=== PATIENT | male | born 1940 | race Caucasian/White ===

== ENCOUNTER 2017-05-20 18:26 | Observation (INO) | payer OTHER ==
[~2017-05-20] VITALS: Ht 170.2 cm; Wt 81.1 kg
[~2017-05-20 18:26] MED LIST: AMLODIPINE BESY10 MG PO; AMLODIPINE BESYL5 MG PO; ANCEF,KEFZ2 GM/100 M IV; ASPIR 8181 M1 PO; ASPIR-LOW81 MG PO; ASPIRIN EC325 MG PO; ASPIRIN325 MG PO; ASPIRIN81 M1 PO; BISACODYL SUPP10 MG PR; CALCITRIOL0.25 MCG PO; CALCIUM 500 +1 EACH PO; CALCIUM ACETAT667 MG PO; CENTRUM SILVER1 EAC3 PO; CEPHALEXIN500 MG PO; CITALOPRAM HBR20 MG PO; CLEOCIN300 MG PO; CRESTOR10 MG PO; Chronulac,Cephulac,Enulose 20 gm/30 ml PO; Colace PO; DIABETA5 MG PO; DICYCLOMINE HCL20 MG PO; DUONEB 2.5-0.5 M3 ML AEROSOL; Diabeta,Micronase PO; ECOTRIN325 MG PO; EXTRA STRENGTH500 M1 PO; Ecotrin PO; FLOMAX0.4 M1 PO; FLOMAX0.4 MG PO; FLORINEF ACETA0.1 MG PO; Flomax PO; GABAPENTIN300 MG PO; GLIPIZIDE10 MG PO; GLUCAGEN1 MG IM/SC; GLUCOPHAGE500 MG PO; GLYBURIDE5 MG PO; HYDROCODON-ACE1 EAC7 PO; K-DUR10 MEQ PO; K-DUR20 MEQ PO; KLOR-CON M2020 MEQ PO; LANTUS 3 M100 UNITS/ SC; LANTUS 3 M100 UNITS1 SC; LANTUS100 UNIT/1 SQ; LEVEMIR100 UNIT/2 SC; LEXAPRO10 MG PO; LIDODERM 5% P1 PATCH TD; LITE COAT ASPI325 M1 PO; LORATADINE10 M2 PO; LYRICA150 MG PO; LYRICA75 MG PO; Lexapro PO; METRONIDAZOLE500 MG PO; MILK OF MAGNESI10 ML PO; MULTI-DAY VITA1 EACH PO; MULTIVITAMINS1 EAC2 PO; MYCOSTATIN1 APPLICAT TP; Miralax, Glycolax PO; NABI650T PO; NORVASC2.5 MG PO; NORVASC5 MG PO; NOVOLOG 10100 UNITS/ SC; NOVOLOG PE100 UNITS/; NOVOLOG PE100 UNITS/ SC; Norvasc PO; ONDANSETRON HCL4 MG PO; ONDANSETRON4 MG/2 ML IV; ONDANSETRON4 MG/2 ML PO; ONE DAILY FOR1 EACH PO; ONE-A-DAY ESSE1 EAC1 PO; OS-CAL 500+D T1 EAC1 PO; Oscal 500 w/Vitamin PO; PANTOPRAZOLE SO40 MG PO; PLAVIX75 MG PO; POTASSIUM CHLO20 ME1 PO; PRAVASTATIN SOD40 MG PO; PROMETHAZINE HC25 M1 PO; PROMETHAZINE12.5 M1 PO; PROTONIX40 MG PO; SIMVASTATIN20 MG PO; Senokot S,Pericolace PO; TAMSULOSIN HCL0.4 MG PO; THERAGRAN1 TABLET PO; TOPROL XL100 MG PO; TRAMADOL HCL50 MG PO; TYLENOL EXTRA500 MG PO; TYLENOL REGULA325 MG PO; Theragran PO; Tums,OsCal PO; Tylenol PO; VYTORIN 10-201 EACH PO; ZESTRIL,PRINIV2.5 MG PO; ZESTRIL10 MG PO; ZESTRIL2.5 MG PO
[2017-05-20 19:27] LABS: POINT-OF-CARE METER ID UU13113778
[2017-05-20 20:20] LABS: HEMATOCRIT 31.9 % (38.0-50.0); MCH 28.9 PG (29.0-34.0); MCV 90.4 FL (86-99); PLATELET COUNT 90 K/uL (156-360); RBC DIS.WIDTH-CV 14.3 % (11.8-14.6); RBC DIS.WIDTH-SD 46.7 % (39-53); RED BLOOD COUNT 3.53 M/uL (4.00-5.50); WHITE BLOOD COUNT 7.2 K/uL (4.1-10.2)
[2017-05-20 20:31] LABS: CHLORIDE 108 mEq/L (99-109); POTASSIUM 4.9 mEq/L (3.7-5.4); SODIUM 141 mEq/L (136-147)
[2017-05-20 20:34] LABS: GLUCOSE 206 mg/dL (70-99)
[2017-05-20 20:35] LABS: ANION GAP 14 MEQ/L (2-14); TOTAL BILIRUBIN 0.5 mg/dL (0.0-1.0)
[2017-05-20 20:37] LABS: ALKALINE PHOSPHATASE 95 IU/L (3-129)
[2017-05-20 20:38] LABS: UREA NITROGEN (BUN) 68 mg/dL (9-23)
[2017-05-20 20:42] LABS: TROP-I INTERPRETATION NEGATIVE; TROPONIN-I 0.02 ng/mL (0.0-0.30)
[2017-05-20 20:44] LABS: GFR ESTIMATE (CALCULATED) 8 mL/min/
[2017-05-20] MEDS ORDERED: LANTUS 10100 UNITS/ SC (23:53)
[2017-05-20] MEDS ORDERED: NORVASC5 MG PO (23:53)
[2017-05-20] MEDS ORDERED: NABI650T PO (23:53)
[2017-05-20] MEDS ORDERED: LO-DOSE ASPIRIN81 M2 PO (23:54)
[2017-05-20] MEDS ORDERED: TUMS500 MG PO (23:54)
[2017-05-21 03:10] LABS: ADD MIUA? YES; BILIRUBIN NEGATIVE; BLOOD NEGATIVE; COLOR YELLOW ((YELLOW)); GLUCOSE (STRIP) >=500; KETONES NEGATIVE; LEUKOCYTES NEGATIVE; NITRITE NEGATIVE; PROTEIN (STRIP) 100; SPECIFIC GRAVITY 1.006 (1.000-1.030); UROBILINOGEN 0.2 MG/DL (0.2-1.0)
[2017-05-21 03:16] LABS: BACTERIA RARE /HPF; EPITHELIAL CELLS RARE /HPF; MUCUS TRACE /LPF; RED BLOOD CELLS 0-5 /HPF (0-5); UCUL ADDED? NO; WHITE BLOOD CELLS 0-5 /HPF (0-5)
[2017-05-21 04:10] VITALS: BP 174/81
[2017-05-21 04:29] LABS: POINT-OF-CARE METER ID UU14162513
[2017-05-21 06:39] LABS: HEMATOCRIT 28.7 % (38.0-50.0); MCH 29.6 PG (29.0-34.0); MCHC 32.4 G/DL (30.0-36.0); MCV 91.4 FL (86-99); MEAN PLAT.VOLUME 12.2 uM^3 (9.0-12.4); PLATELET COUNT 71 K/uL (156-360); RBC DIS.WIDTH-CV 14.5 % (11.8-14.6); RBC DIS.WIDTH-SD 47.9 % (39-53); RED BLOOD COUNT 3.14 M/uL (4.00-5.50); WHITE BLOOD COUNT 6.4 K/uL (4.1-10.2)
[2017-05-21 07:16] LABS: ALKALINE PHOSPHATASE 78 IU/L (3-129); ANION GAP 11 MEQ/L (2-14); CHLORIDE 110 MEQ/L (99-109); GFR ESTIMATE (CALCULATED) 9 mL/min/; GLUCOSE 210 mg/dL (70-99); POTASSIUM 4.4 MEQ/L (3.7-5.4); SAMPLE HEMOLYSIS CHECK 0; SAMPLE ICTERIC CHECK 0; SAMPLE LIPEMIA CHECK 0; SODIUM 142 MEQ/L (136-147); TOTAL BILIRUBIN 0.4 MG/DL (0.0-1.0); UREA NITROGEN (BUN) 62 mg/dL (9-23)
[2017-05-21 08:24] LABS: POINT-OF-CARE METER ID UU14162513
[2017-05-21 09:17] VITALS: BP 133/64
[2017-05-21 11:06] VITALS: BP 156/75; BP 184/74
[2017-05-21 12:51] LABS: POINT-OF-CARE METER ID UU14162513
[2017-05-21 17:15] VITALS: BP 127/57
[2017-05-21 17:49] LABS: POINT-OF-CARE METER ID UU14162513
[2017-05-21 18:03] LABS: C DIFF TOXIN POSITIVE (NEGATIVE)
[2017-05-21 18:05] LABS: PROBE CHECK PASS
[2017-05-21 20:15] VITALS: BP 165/81
[2017-05-21 22:48] LABS: POINT-OF-CARE METER ID UU13113831
[2017-05-21 23:46] VITALS: BP 151/69
[2017-05-22 05:28] LABS: EOSINOPHIL (%) 4.8 % (0-5); EOSINOPHIL COUNT 0.2 K/uL (0-0.3); HEMATOCRIT 28.6 % (38.0-50.0); IMMATURE GRANULOCYTE (%) 0.6 % (0.0-0.7); INSTRUMENT ABS NEUTROPHIL CT 3.2 K/uL; LYMPHOCYTE COUNT 0.8 K/uL (1.0-2.8); MCH 29.5 PG (29.0-34.0); MCHC 32.5 G/DL (30.0-36.0); MCV 90.8 FL (86-99); MEAN PLAT.VOLUME 11.9 uM^3 (9.0-12.4); MONOCYTE (%) 10.8 % (3-12); MONOCYTE COUNT 0.5 K/uL (0-0.8); NEUTROPHIL (%) 65.7 % (45-76); NEUTROPHIL COUNT 3.2 K/uL (1.8-6.4); PLATELET COUNT 72 K/uL (156-360); RBC DIS.WIDTH-CV 14.2 % (11.8-14.6); RBC DIS.WIDTH-SD 46.7 % (39-53); RED BLOOD COUNT 3.15 M/uL (4.00-5.50); WHITE BLOOD COUNT 4.8 K/uL (4.1-10.2)
[2017-05-22 05:58] LABS: ALKALINE PHOSPHATASE 66 IU/L (3-129); ANION GAP 12 MEQ/L (2-14); CHLORIDE 113 MEQ/L (99-109); GFR ESTIMATE (CALCULATED) 9 mL/min/; GLUCOSE 84 mg/dL (70-99); POTASSIUM 4.1 MEQ/L (3.7-5.4); SAMPLE HEMOLYSIS CHECK 0; SAMPLE ICTERIC CHECK 0; SAMPLE LIPEMIA CHECK 0; SODIUM 143 MEQ/L (136-147); TOTAL BILIRUBIN 0.4 MG/DL (0.0-1.0); UREA NITROGEN (BUN) 59 mg/dL (9-23)
[2017-05-22 07:51] VITALS: BP 146/76
[2017-05-22 08:10] LABS: POINT-OF-CARE METER ID UU13113831
[2017-05-22] MEDS ORDERED: VANCOMYCIN HCL125 MG PO (09:57)
== END 2017-05-22 11:43 | disposition home health service (06) ==
LOC: EME 18:26 → 5WEST 05-21 01:35 → EDOF 05-21 01:35 → 5WEST 05-21 04:03
PROVIDERS: Emergency Medicine; Hospitalist; Internal Medicine; Nurse Practitioner Family
DX: K57.32 Diverticulitis of large intestine without perforation or abscess without bleeding (principal); A04.7 Enterocolitis due to Clostridium difficile; N17.9 Acute kidney failure, unspecified; E11.22 Type 2 diabetes mellitus with diabetic chronic kidney disease; E11.21 Type 2 diabetes mellitus with diabetic nephropathy; I12.9 Hypertensive chronic kidney disease with stage 1 through stage 4 chronic kidney disease, or unspecified chronic kidney disease; N18.4 Chronic kidney disease, stage 4 (severe); K74.60 Unspecified cirrhosis of liver; D63.1 Anemia in chronic kidney disease; E87.2 Acidosis; E55.9 Vitamin D deficiency, unspecified; N25.81 Secondary hyperparathyroidism of renal origin; D69.6 Thrombocytopenia, unspecified; E11.42 Type 2 diabetes mellitus with diabetic polyneuropathy; E11.51 Type 2 diabetes mellitus with diabetic peripheral angiopathy without gangrene; F32.9 Major depressive disorder, single episode, unspecified; J45.909 Unspecified asthma, uncomplicated; I25.2 Old myocardial infarction; N40.0 Benign prostatic hyperplasia without lower urinary tract symptoms; I25.10 Atherosclerotic heart disease of native coronary artery without angina pectoris; F03.90 Unspecified dementia, unspecified severity, without behavioral disturbance, psychotic disturbance, mood disturbance, and anxiety; Z79.4 Long term (current) use of insulin; Z95.1 Presence of aortocoronary bypass graft; Z86.73 Personal history of transient ischemic attack (TIA), and cerebral infarction without residual deficits
CPT/HCPCS: 70450; 71020; 74176; 80053; 81003; 82607; 82746; 82948; 84100; 84484; 85025; 85027; 87086; 87493; 93005; G0378; J0696; J0881; J1644; J1815; J7030; J7050; S0030

== ENCOUNTER 2017-08-13 12:29 | Emergency (ER) | payer OTHER ==
[~2017-08-13] VITALS: Ht 154.9 cm; Wt 78.7 kg
[~2017-08-13 12:29] MED LIST changes: +LANTUS 10100 UNITS/ SC; +LO-DOSE ASPIRIN81 M2 PO; +TUMS500 MG PO; +VANCOMYCIN HCL125 MG PO
[2017-08-13 14:52] LABS: EOSINOPHIL (%) 2.7 % (0-5); EOSINOPHIL COUNT 0.2 K/uL (0-0.3); HEMATOCRIT 28.5 % (38.0-50.0); IMMATURE GRANULOCYTE (%) 1.7 % (0.0-0.7); IMMATURE GRANULOCYTE COUNT 0.1 K/uL; INSTRUMENT ABS NEUTROPHIL CT 5.8 K/uL; MCHC 32.3 G/DL (30.0-36.0); MCV 89.9 FL (86-99); MEAN PLAT.VOLUME 11.2 uM^3 (9.0-12.4); MONOCYTE (%) 11.6 % (3-12); MONOCYTE COUNT 0.9 K/uL (0-0.8); NEUTROPHIL (%) 71.7 % (45-76); NEUTROPHIL COUNT 5.8 K/uL (1.8-6.4); NRBC (%) 0.2 /100 WBC (0-0); PLATELET COUNT 94 K/uL (156-360); RBC DIS.WIDTH-CV 14.2 % (11.8-14.6); RBC DIS.WIDTH-SD 46.4 % (39-53); RED BLOOD COUNT 3.17 M/uL (4.00-5.50); WHITE BLOOD COUNT 8.1 K/uL (4.1-10.2)
[2017-08-13 15:00] LABS: CHLORIDE 110 mEq/L (99-109); POTASSIUM 5.2 mEq/L (3.7-5.4); SODIUM 143 mEq/L (136-147)
[2017-08-13 15:02] LABS: GLUCOSE 143 mg/dL (70-99)
[2017-08-13 15:03] LABS: ANION GAP 17 MEQ/L (2-14)
[2017-08-13 15:06] LABS: GFR ESTIMATE (CALCULATED) 8 mL/min/
[2017-08-13 15:07] LABS: UREA NITROGEN (BUN) 79 mg/dL (9-23)
[2017-08-13 16:30] VITALS: BP 154/87
== END 2017-08-13 16:31 | disposition home or self-care (01) ==
LOC: EME 12:29
PROVIDERS: Emergency Medicine
PROC: 3E0234Z Introduction of Serum, Toxoid and Vaccine into Muscle, Percutaneous Approach (ICD-10-PCS; principal; 2017-08-13)
DX: S51.812A Laceration without foreign body of left forearm, initial encounter (principal); I12.9 Hypertensive chronic kidney disease with stage 1 through stage 4 chronic kidney disease, or unspecified chronic kidney disease; E11.22 Type 2 diabetes mellitus with diabetic chronic kidney disease; N18.9 Chronic kidney disease, unspecified; S50.12XA Contusion of left forearm, initial encounter; Z23 Encounter for immunization; W18.09XA Striking against other object with subsequent fall, initial encounter; Y92.39 Other specified sports and athletic area as the place of occurrence of the external cause; Z79.4 Long term (current) use of insulin; I25.2 Old myocardial infarction; E78.5 Hyperlipidemia, unspecified; F03.90 Unspecified dementia, unspecified severity, without behavioral disturbance, psychotic disturbance, mood disturbance, and anxiety; Z86.73 Personal history of transient ischemic attack (TIA), and cerebral infarction without residual deficits; Z95.1 Presence of aortocoronary bypass graft
CPT/HCPCS: 70450; 73090; 80048; 85025; 93005; 99281; 99285

== ENCOUNTER 2017-10-14 14:02 | Day surgery (SDC) | payer OTHER ==
[~2017-10-14] VITALS: Ht 170.2 cm; Wt 80.7 kg
[~2017-10-14 14:02] MED LIST changes: +TURMERIC500 M2 PO; +VITAMIN D-32000 UNI2 PO
[2017-10-14 14:41] LABS: HEMATOCRIT 28.7 % (38.0-50.0); MCH 29.4 PG (29.0-34.0); MCHC 32.1 G/DL (30.0-36.0); MCV 91.7 FL (86-99); PLATELET COUNT 102 K/uL (156-360); RBC DIS.WIDTH-SD 47.4 % (39-53); RED BLOOD COUNT 3.13 M/uL (4.00-5.50); WHITE BLOOD COUNT 8.5 K/uL (4.1-10.2)
[2017-10-14 14:55] LABS: ANION GAP 14 MEQ/L (2-14); CHLORIDE 106 MEQ/L (99-109); POTASSIUM 4.5 MEQ/L (3.7-5.4); SAMPLE HEMOLYSIS CHECK 0; SAMPLE ICTERIC CHECK 0; SAMPLE LIPEMIA CHECK 0; SODIUM 140 MEQ/L (136-147)
[2017-10-14 14:59] VITALS: BP 149/79
[2017-10-14 15:00] LABS: GFR ESTIMATE (CALCULATED) 7 mL/min/; GLUCOSE 160 mg/dL (70-99); UREA NITROGEN (BUN) 70 mg/dL (9-23)
[2017-10-14 16:30] LABS: POINT-OF-CARE METER ID UU13113675
[2017-10-14 17:30] VITALS: BP 161/84
[2017-10-14 18:45] VITALS: BP 165/90
== END 2017-10-14 19:09 | disposition home or self-care (01) ==
LOC: SDC 14:02
PROVIDERS: Surgery
DX: I12.0 Hypertensive chronic kidney disease with stage 5 chronic kidney disease or end stage renal disease (principal); E11.22 Type 2 diabetes mellitus with diabetic chronic kidney disease; N18.6 End stage renal disease; Z99.2 Dependence on renal dialysis; D63.1 Anemia in chronic kidney disease; E78.5 Hyperlipidemia, unspecified; N40.0 Benign prostatic hyperplasia without lower urinary tract symptoms; I25.10 Atherosclerotic heart disease of native coronary artery without angina pectoris; I25.2 Old myocardial infarction; K74.60 Unspecified cirrhosis of liver; I70.209 Unspecified atherosclerosis of native arteries of extremities, unspecified extremity; E21.3 Hyperparathyroidism, unspecified; Z79.82 Long term (current) use of aspirin; Z79.4 Long term (current) use of insulin; Z79.02 Long term (current) use of antithrombotics/antiplatelets
CPT/HCPCS: 71010; 80048; 82948; 85027; C1788; J0690; J1644

== ENCOUNTER 2017-12-09 09:33 | Day surgery (SDC) | payer OTHER ==
[~2017-12-09] VITALS: Ht 170.2 cm; Wt 72.6 kg
[2017-12-09 10:30] LABS: HEMATOCRIT 33.4 % (38.0-50.0); HEMOGLOBIN 10.3 G/DL (12.5-16.6); MCH 28.6 PG (29.0-34.0); MCHC 30.8 G/DL (30.0-36.0); MCV 92.8 FL (86-99); PLATELET COUNT 98 K/uL (156-360); RBC DIS.WIDTH-CV 16.1 % (11.8-14.6); RBC DIS.WIDTH-SD 54.7 % (39-53); WHITE BLOOD COUNT 6.1 K/uL (4.1-10.2)
[2017-12-09 10:34] VITALS: BP 153/87
[2017-12-09 10:56] LABS: CHLORIDE 106 MEQ/L (99-109); POTASSIUM 5.2 MEQ/L (3.7-5.4); SODIUM 141 MEQ/L (136-147)
[2017-12-09 11:01] LABS: CREATININE 5.2 MG/DL (0.6-1.3); GFR ESTIMATE (CALCULATED) 11 mL/min/ (58.99-99999); GLUCOSE 187 mg/dL (70-99); UREA NITROGEN (BUN) 37 mg/dL (9-23)
[2017-12-09] MEDS ORDERED: NORCO 5/3251 TABLET PO (14:22)
[2017-12-09 14:48] VITALS: BP 111/69
[2017-12-09 15:48] VITALS: BP 111/69
[2017-12-09 16:45] VITALS: BP 110/68
[2017-12-09 17:36] VITALS: BP 114/67
== END 2017-12-09 17:35 | disposition home or self-care (01) ==
LOC: SDC 09:33
PROVIDERS: Surgery
DX: I12.0 Hypertensive chronic kidney disease with stage 5 chronic kidney disease or end stage renal disease (principal); E11.22 Type 2 diabetes mellitus with diabetic chronic kidney disease; N18.6 End stage renal disease; E11.51 Type 2 diabetes mellitus with diabetic peripheral angiopathy without gangrene; Z99.2 Dependence on renal dialysis; F41.8 Other specified anxiety disorders; D63.8 Anemia in other chronic diseases classified elsewhere; N40.0 Benign prostatic hyperplasia without lower urinary tract symptoms; K76.9 Liver disease, unspecified; I25.10 Atherosclerotic heart disease of native coronary artery without angina pectoris; E78.5 Hyperlipidemia, unspecified; E21.3 Hyperparathyroidism, unspecified; E55.9 Vitamin D deficiency, unspecified; Z95.1 Presence of aortocoronary bypass graft; Z79.82 Long term (current) use of aspirin; Z79.4 Long term (current) use of insulin; Z79.02 Long term (current) use of antithrombotics/antiplatelets
CPT/HCPCS: 80048; 82948; 85027; 87641; J0690; J1644

== ENCOUNTER 2018-02-05 13:47 | Day surgery (SDC) | payer OTHER ==
[~2018-02-05] VITALS: Ht 167.6 cm; Wt 79.8 kg
[~2018-02-05 13:47] MED LIST changes: +NEPHRO-VITE,1 TABLET PO; +NORCO 5/3251 TABLET PO
[2018-02-05 14:49] LABS: HEMATOCRIT 35.8 % (38.0-50.0); MCH 28.1 PG (29.0-34.0); MCHC 30.7 G/DL (30.0-36.0); MCV 91.6 FL (86-99); PLATELET COUNT 101 K/uL (156-360); RBC DIS.WIDTH-SD 57.2 % (39-53); RED BLOOD COUNT 3.91 M/uL (4.00-5.50); WHITE BLOOD COUNT 6.5 K/uL (4.1-10.2)
[2018-02-05 14:52] VITALS: BP 142/69
[2018-02-05 15:02] LABS: CHLORIDE 102 MEQ/L (99-109); POTASSIUM 3.9 MEQ/L (3.7-5.4); SODIUM 141 MEQ/L (136-147)
[2018-02-05 15:08] LABS: GFR ESTIMATE (CALCULATED) 16 mL/min/ (58.99-99999); GLUCOSE 171 mg/dL (70-99); UREA NITROGEN (BUN) 31 mg/dL (9-23)
[2018-02-05 17:35] VITALS: BP 112/57
[2018-02-05 18:09] VITALS: BP 112/58
== END 2018-02-05 18:17 | disposition home or self-care (01) ==
LOC: SDC 13:47
PROVIDERS: Surgery
DX: T82.858A Stenosis of other vascular prosthetic devices, implants and grafts, initial encounter (principal); I12.0 Hypertensive chronic kidney disease with stage 5 chronic kidney disease or end stage renal disease; N18.5 Chronic kidney disease, stage 5; Z99.2 Dependence on renal dialysis; D63.1 Anemia in chronic kidney disease; E11.22 Type 2 diabetes mellitus with diabetic chronic kidney disease; E11.51 Type 2 diabetes mellitus with diabetic peripheral angiopathy without gangrene; I70.209 Unspecified atherosclerosis of native arteries of extremities, unspecified extremity; I25.10 Atherosclerotic heart disease of native coronary artery without angina pectoris; Z95.1 Presence of aortocoronary bypass graft; Z86.73 Personal history of transient ischemic attack (TIA), and cerebral infarction without residual deficits; E21.3 Hyperparathyroidism, unspecified; E55.9 Vitamin D deficiency, unspecified; E11.40 Type 2 diabetes mellitus with diabetic neuropathy, unspecified; N40.0 Benign prostatic hyperplasia without lower urinary tract symptoms; K76.9 Liver disease, unspecified; I25.2 Old myocardial infarction; M19.90 Unspecified osteoarthritis, unspecified site; F41.1 Generalized anxiety disorder; Z90.49 Acquired absence of other specified parts of digestive tract; Z79.82 Long term (current) use of aspirin; Z79.4 Long term (current) use of insulin; Z83.3 Family history of diabetes mellitus; Z82.49 Family history of ischemic heart disease and other diseases of the circulatory system; Z80.9 Family history of malignant neoplasm, unspecified
CPT/HCPCS: 80048; 82948; 85027; 87641; 93005; C1725; C1769; C1894; J0690; J1644; J3010

== ENCOUNTER 2018-03-13 23:49 | Emergency (ER) | payer OTHER ==
[~2018-03-13] VITALS: Ht 167.6 cm; Wt 84.2 kg
[2018-03-14 00:58] LABS: BASOPHIL (%) 0.1 % (0-1); EOSINOPHIL (%) 0 % (0-5); HEMATOCRIT 34.3 % (38.0-50.0); HEMOGLOBIN 10.8 G/DL (12.5-16.6); IMMATURE GRANULOCYTE (%) 0.8 % (0.0-0.7); LYMPHOCYTE (%) 6.8 % (15-42); LYMPHOCYTE COUNT 0.6 K/uL (1.0-2.8); MCH 28.5 PG (29.0-34.0); MCHC 31.5 G/DL (30.0-36.0); MCV 90.5 FL (86-99); MONOCYTE (%) 8.4 % (3-12); MONOCYTE COUNT 0.7 K/uL (0-0.8); NEUTROPHIL (%) 83.9 % (45-76); NEUTROPHIL COUNT 7.2 K/uL (1.8-6.4); NRBC (%) 0.5 /100 WBC (0-0); PLATELET COUNT 97 K/uL (156-360); RBC DIS.WIDTH-CV 18.2 % (11.8-14.6); RBC DIS.WIDTH-SD 58.3 % (39-53); RED BLOOD COUNT 3.79 M/uL (4.00-5.50); WHITE BLOOD COUNT 8.6 K/uL (4.1-10.2)
[2018-03-14 01:09] LABS: ALBUMIN 3.8 g/dL (3.2-4.8); CHLORIDE 96 mEq/L (99-109); POTASSIUM 3.9 mEq/L (3.7-5.4); SODIUM 136 mEq/L (136-147)
[2018-03-14 01:10] LABS: MAGNESIUM 2.2 mg/dL (1.3-2.7)
[2018-03-14 01:12] LABS: TOTAL PROTEIN 6.6 g/dL (6.4-8.3)
[2018-03-14 01:14] LABS: TOTAL BILIRUBIN 0.6 mg/dL (0.0-1.0)
[2018-03-14 01:15] LABS: ALKALINE PHOSPHATASE 113 IU/L (3-129); PHOSPHORUS 3.1 mg/dL (2.5-4.9)
[2018-03-14 01:16] LABS: CREATININE 3.7 mg/dL (0.6-1.3); GFR ESTIMATE (CALCULATED) 17 mL/min/ (58.99-99999)
[2018-03-14 01:17] LABS: AST (GOT) 18 IU/L (2-34); UREA NITROGEN (BUN) 49 mg/dL (9-23)
[2018-03-14 01:19] LABS: ALT (GPT) 22 IU/L (3-49)
[2018-03-14 01:28] LABS: GLUCOSE 512 mg/dL (70-99)
[2018-03-14] MEDS ORDERED: ULTRAM50 MG PO (05:53)
[2018-03-14 06:30] VITALS: BP 124/68
== END 2018-03-14 06:54 | disposition home or self-care (01) ==
LOC: EME → EDBD 23:49 → EME 03-14 06:54
PROVIDERS: Emergency Medicine
DX: E11.40 Type 2 diabetes mellitus with diabetic neuropathy, unspecified (principal); E11.65 Type 2 diabetes mellitus with hyperglycemia; B02.9 Zoster without complications; E11.22 Type 2 diabetes mellitus with diabetic chronic kidney disease; I12.9 Hypertensive chronic kidney disease with stage 1 through stage 4 chronic kidney disease, or unspecified chronic kidney disease; N18.9 Chronic kidney disease, unspecified; Z99.2 Dependence on renal dialysis; K74.60 Unspecified cirrhosis of liver; F03.90 Unspecified dementia, unspecified severity, without behavioral disturbance, psychotic disturbance, mood disturbance, and anxiety; E78.5 Hyperlipidemia, unspecified; I25.2 Old myocardial infarction; Z95.1 Presence of aortocoronary bypass graft; F32.9 Major depressive disorder, single episode, unspecified; F41.9 Anxiety disorder, unspecified; Z86.73 Personal history of transient ischemic attack (TIA), and cerebral infarction without residual deficits; Z90.49 Acquired absence of other specified parts of digestive tract; Z79.4 Long term (current) use of insulin; Z79.82 Long term (current) use of aspirin
CPT/HCPCS: 80053; 82948; 83735; 84100; 85025; 99281; 99285

== ENCOUNTER 2018-03-15 22:45 | Observation (INO) | payer OTHER ==
[~2018-03-15] VITALS: Ht 170.2 cm; Wt 84.2 kg
[~2018-03-15 22:45] MED LIST changes: +ULTRAM50 MG PO
[2018-03-15 23:52] LABS: HEMATOCRIT 35.3 % (38.0-50.0); MCH 28.8 PG (29.0-34.0); MCHC 31.2 G/DL (30.0-36.0); MCV 92.4 FL (86-99); PLATELET COUNT 105 K/uL (156-360); RBC DIS.WIDTH-CV 19.4 % (11.8-14.6); RBC DIS.WIDTH-SD 60.1 % (39-53); RED BLOOD COUNT 3.82 M/uL (4.00-5.50); WHITE BLOOD COUNT 8.1 K/uL (4.1-10.2)
[2018-03-16 00:05] LABS: ALBUMIN 3.6 g/dL (3.2-4.8)
[2018-03-16 00:06] LABS: CHLORIDE 101 mEq/L (99-109); POTASSIUM 3.6 mEq/L (3.7-5.4); SODIUM 142 mEq/L (136-147)
[2018-03-16 00:08] LABS: GLUCOSE 302 mg/dL (70-99); TOTAL PROTEIN 6.4 g/dL (6.4-8.3)
[2018-03-16 00:10] LABS: TOTAL BILIRUBIN 0.7 mg/dL (0.0-1.0)
[2018-03-16 00:11] LABS: ALKALINE PHOSPHATASE 100 IU/L (3-129)
[2018-03-16 00:14] LABS: ALT (GPT) 30 IU/L (3-49); AST (GOT) 27 IU/L (2-34); CREATININE 5.6 mg/dL (0.6-1.3); GFR ESTIMATE (CALCULATED) 11 mL/min/ (58.99-99999); UREA NITROGEN (BUN) 81 mg/dL (9-23)
[2018-03-16 00:15] LABS: URIC ACID 8.7 mg/dL (3.1-9.2)
[2018-03-16 02:10] LABS: C-REACTIVE PROTEIN 5.5 MG/L (0-10)
[2018-03-16] MEDS ORDERED: ACYCLOVIR800 MG PO (02:42)
[2018-03-16 03:21] VITALS: BP 145/70
[2018-03-16 03:31] LABS: ERTH.SED.RATE 13 MM/HR (0-20)
[2018-03-16 07:10] VITALS: BP 133/76
[2018-03-16 09:13] LABS: BASOPHIL (%) 0.2 % (0-1); EOSINOPHIL (%) 2.1 % (0-5); EOSINOPHIL COUNT 0.1 K/uL (0-0.3); HEMATOCRIT 33.5 % (38.0-50.0); HEMOGLOBIN 10.5 G/DL (12.5-16.6); IMMATURE GRANULOCYTE (%) 1.1 % (0.0-0.7); LYMPHOCYTE (%) 13.8 % (15-42); LYMPHOCYTE COUNT 0.9 K/uL (1.0-2.8); MCHC 31.3 G/DL (30.0-36.0); MCV 92.5 FL (86-99); MONOCYTE (%) 9.5 % (3-12); MONOCYTE COUNT 0.6 K/uL (0-0.8); NEUTROPHIL (%) 73.3 % (45-76); NEUTROPHIL COUNT 4.9 K/uL (1.8-6.4); NRBC (%) 0.3 /100 WBC (0-0); PLATELET COUNT 97 K/uL (156-360); RBC DIS.WIDTH-CV 19.6 % (11.8-14.6); RBC DIS.WIDTH-SD 59.9 % (39-53); RED BLOOD COUNT 3.62 M/uL (4.00-5.50); WHITE BLOOD COUNT 6.6 K/uL (4.1-10.2)
[2018-03-16 09:22] LABS: ALBUMIN 3.3 G/DL (3.2-4.8); CHLORIDE 101 MEQ/L (99-109); POTASSIUM 3.6 MEQ/L (3.7-5.4); SODIUM 139 MEQ/L (136-147)
[2018-03-16 09:28] LABS: CREATININE 5.5 MG/DL (0.6-1.3); GFR ESTIMATE (CALCULATED) 11 mL/min/ (58.99-99999); GLUCOSE 313 mg/dL (70-99); PHOSPHORUS 6.1 mg/dL (2.5-4.9); UREA NITROGEN (BUN) 78 mg/dL (9-23)
[2018-03-16 11:22] LABS: HEPATITIS B SURFACE ANTIGEN Nonreactive
[2018-03-16 11:23] LABS: HEPATITIS B SURFACE ANTIBODY Nonreactive
[2018-03-16 16:11] VITALS: BP 130/66
[2018-03-16] MEDS ORDERED: GABAPENTIN300 MG PO (17:18)
[2018-03-16] MEDS ORDERED: AMITRIPTYLINE H10 MG PO (17:18)
[2018-03-16] MEDS ORDERED: CAPSAICIN57 GM TP (17:19)
== END 2018-03-16 18:47 | disposition home or self-care (01) ==
LOC: EME → EDBD 22:45 → EDOF 03-16 01:44 → 5WEST 03-16 01:44 → EDOF 03-16 01:44 → ENRESERV 03-16 01:49 → 5WEST 03-16 03:09
PROVIDERS: Emergency Medicine; Hospitalist; Internal Medicine Nephrology
DX: E11.40 Type 2 diabetes mellitus with diabetic neuropathy, unspecified (principal); M79.672 Pain in left foot; M79.671 Pain in right foot; R26.89 Other abnormalities of gait and mobility; Z91.81 History of falling; F03.90 Unspecified dementia, unspecified severity, without behavioral disturbance, psychotic disturbance, mood disturbance, and anxiety; I12.0 Hypertensive chronic kidney disease with stage 5 chronic kidney disease or end stage renal disease; E11.22 Type 2 diabetes mellitus with diabetic chronic kidney disease; N18.6 End stage renal disease; Z99.2 Dependence on renal dialysis; E11.21 Type 2 diabetes mellitus with diabetic nephropathy; E11.51 Type 2 diabetes mellitus with diabetic peripheral angiopathy without gangrene; E03.9 Hypothyroidism, unspecified; E55.9 Vitamin D deficiency, unspecified; N40.0 Benign prostatic hyperplasia without lower urinary tract symptoms; K74.60 Unspecified cirrhosis of liver; K21.9 Gastro-esophageal reflux disease without esophagitis; I25.10 Atherosclerotic heart disease of native coronary artery without angina pectoris; I25.2 Old myocardial infarction; I48.0 Paroxysmal atrial fibrillation; I69.354 Hemiplegia and hemiparesis following cerebral infarction affecting left non-dominant side; E21.3 Hyperparathyroidism, unspecified; M50.30 Other cervical disc degeneration, unspecified cervical region; M19.90 Unspecified osteoarthritis, unspecified site; K86.1 Other chronic pancreatitis; D63.1 Anemia in chronic kidney disease; F32.9 Major depressive disorder, single episode, unspecified; F41.9 Anxiety disorder, unspecified; K27.9 Peptic ulcer, site unspecified, unspecified as acute or chronic, without hemorrhage or perforation; Z86.19 Personal history of other infectious and parasitic diseases; Z90.49 Acquired absence of other specified parts of digestive tract; Z95.1 Presence of aortocoronary bypass graft; Z87.891 Personal history of nicotine dependence; Z82.49 Family history of ischemic heart disease and other diseases of the circulatory system; Z83.3 Family history of diabetes mellitus; B02.9 Zoster without complications; Z79.82 Long term (current) use of aspirin; Z79.02 Long term (current) use of antithrombotics/antiplatelets; Z79.4 Long term (current) use of insulin
CPT/HCPCS: 73630; 80053; 80069; 82948; 84550; 85025; 85027; 85651; 86140; 86706; 87340; 99281; 99285; G0257; G0378; G8978 GP CK; G8979 CJ; J1644; J1815

== ENCOUNTER 2018-03-29 15:08 | Emergency (ER) | payer OTHER ==
[~2018-03-29] VITALS: Ht 170.2 cm; Wt 83.2 kg
[~2018-03-29 15:08] MED LIST changes: +ACYCLOVIR800 MG PO; +AMITRIPTYLINE H10 MG PO; +CAPSAICIN57 GM TP
[2018-03-29 17:50] VITALS: BP 132/78
[2018-03-31] MEDS ORDERED: FLOMAX0.4 MG PO (09:47)
== END 2018-03-29 17:53 | disposition home or self-care (01) ==
LOC: EME 15:08
DX: S00.03XA Contusion of scalp, initial encounter (principal); W01.0XXA Fall on same level from slipping, tripping and stumbling without subsequent striking against object, initial encounter; E11.9 Type 2 diabetes mellitus without complications; E78.5 Hyperlipidemia, unspecified; F03.90 Unspecified dementia, unspecified severity, without behavioral disturbance, psychotic disturbance, mood disturbance, and anxiety; K74.60 Unspecified cirrhosis of liver; F41.9 Anxiety disorder, unspecified; F32.9 Major depressive disorder, single episode, unspecified; I25.2 Old myocardial infarction; Z95.1 Presence of aortocoronary bypass graft; Z86.73 Personal history of transient ischemic attack (TIA), and cerebral infarction without residual deficits; Z90.49 Acquired absence of other specified parts of digestive tract; Z79.4 Long term (current) use of insulin; Z79.82 Long term (current) use of aspirin
CPT/HCPCS: 70450; 99281; 99284

== ENCOUNTER 2018-03-31 20:42 | Inpatient (IN) | payer OTHER ==
[~2018-03-31] VITALS: Ht 170.2 cm; Wt 81.4 kg
[~2018-03-31 20:42] MED LIST changes: -LEVAQUIN500 MG PO; -LYRICA50 MG PO
[2018-03-31 22:42] LABS: BASOPHIL (%) 0.4 % (0-1); EOSINOPHIL (%) 1.2 % (0-5); EOSINOPHIL COUNT 0.1 K/uL (0-0.3); HEMATOCRIT 34.8 % (38.0-50.0); HEMOGLOBIN 10.7 G/DL (12.5-16.6); IMMATURE GRANULOCYTE (%) 0.5 % (0.0-0.7); LYMPHOCYTE (%) 10.3 % (15-42); LYMPHOCYTE COUNT 0.8 K/uL (1.0-2.8); MCH 28.8 PG (29.0-34.0); MCHC 30.7 G/DL (30.0-36.0); MCV 93.5 FL (86-99); MONOCYTE (%) 12.5 % (3-12); MONOCYTE COUNT 0.9 K/uL (0-0.8); NEUTROPHIL (%) 75.1 % (45-76); NEUTROPHIL COUNT 5.6 K/uL (1.8-6.4); PLATELET COUNT 88 K/uL (156-360); RBC DIS.WIDTH-CV 19.6 % (11.8-14.6); RBC DIS.WIDTH-SD 67.1 % (39-53); RED BLOOD COUNT 3.72 M/uL (4.00-5.50); WHITE BLOOD COUNT 7.5 K/uL (4.1-10.2)
[2018-03-31 22:54] LABS: CHLORIDE 100 mEq/L (99-109); MAGNESIUM 1.9 mg/dL (1.3-2.7); SODIUM 140 mEq/L (136-147)
[2018-03-31 22:56] LABS: GLUCOSE 151 mg/dL (70-99)
[2018-03-31 22:59] LABS: GFR ESTIMATE (CALCULATED) 12 mL/min/ (58.99-99999)
[2018-03-31 23:00] LABS: UREA NITROGEN (BUN) 29 mg/dL (9-23)
[2018-03-31 23:03] LABS: TROP-I INTERPRETATION NEGATIVE; TROPONIN-I 0.07 ng/mL (0.0-0.30)
[2018-04-01 00:10] LABS: APPEARANCE CLEAR ((CLEAR)); BILIRUBIN NEGATIVE; BLOOD NEGATIVE; COLOR YELLOW ((YELLOW)); GLUCOSE (STRIP) 150; KETONES NEGATIVE; LEUKOCYTES NEGATIVE; NITRITE NEGATIVE; PROTEIN (STRIP) >=500; SPECIFIC GRAVITY 1.013 (1.000-1.030); UROBILINOGEN 0.2 MG/DL (0.2-1.0)
[2018-04-01 00:19] LABS: BACTERIA NONE SEEN /HPF; EPITHELIAL CELLS NONE SEEN /HPF; HYALINE CASTS 0-5 /LPF; MUCUS NONE SEEN /LPF; RED BLOOD CELLS 0-5 /HPF (0-5); WHITE BLOOD CELLS 0-5 /HPF (0-5)
[2018-04-01 04:26] VITALS: BP 131/73
[2018-04-01 08:15] VITALS: BP 149/75
[2018-04-01 11:18] LABS: BASOPHIL (%) 0.4 % (0-1); EOSINOPHIL (%) 0.7 % (0-5); EOSINOPHIL COUNT 0.1 K/uL (0-0.3); HEMATOCRIT 34.7 % (38.0-50.0); HEMOGLOBIN 10.5 G/DL (12.5-16.6); IMMATURE GRANULOCYTE (%) 0.3 % (0.0-0.7); LYMPHOCYTE (%) 5.5 % (15-42); LYMPHOCYTE COUNT 0.4 K/uL (1.0-2.8); MCH 28.8 PG (29.0-34.0); MCHC 30.3 G/DL (30.0-36.0); MCV 95.1 FL (86-99); MONOCYTE (%) 11.2 % (3-12); MONOCYTE COUNT 0.8 K/uL (0-0.8); NEUTROPHIL (%) 81.9 % (45-76); NEUTROPHIL COUNT 5.6 K/uL (1.8-6.4); PLATELET COUNT 87 K/uL (156-360); RBC DIS.WIDTH-CV 19.2 % (11.8-14.6); RBC DIS.WIDTH-SD 67.7 % (39-53); RED BLOOD COUNT 3.65 M/uL (4.00-5.50); WHITE BLOOD COUNT 6.9 K/uL (4.1-10.2)
[2018-04-01 11:53] LABS: ALBUMIN 3.2 G/DL (3.2-4.8); CHLORIDE 103 MEQ/L (99-109); CREATININE 5.1 MG/DL (0.6-1.3); GFR ESTIMATE (CALCULATED) 12 mL/min/ (58.99-99999); GLUCOSE 190 mg/dL (70-99); POTASSIUM 4.3 MEQ/L (3.7-5.4); SODIUM 141 MEQ/L (136-147); UREA NITROGEN (BUN) 33 mg/dL (9-23)
[2018-04-01 12:08] LABS: HEPATITIS B SURFACE ANTIGEN Nonreactive
[2018-04-01 16:44] VITALS: BP 141/69
[2018-04-01 19:40] VITALS: BP 135/62
[2018-04-02 00:04] VITALS: BP 119/61
[2018-04-02 04:01] VITALS: BP 111/58
[2018-04-02 06:05] LABS: INTER. NORMALIZED RATIO 1.6
[2018-04-02 06:07] LABS: BASOPHIL (%) 0.6 % (0-1); EOSINOPHIL COUNT 0.2 K/uL (0-0.3); HEMATOCRIT 31.8 % (38.0-50.0); HEMOGLOBIN 9.5 G/DL (12.5-16.6); IMMATURE GRANULOCYTE (%) 0.6 % (0.0-0.7); LYMPHOCYTE (%) 16.7 % (15-42); LYMPHOCYTE COUNT 0.8 K/uL (1.0-2.8); MCH 27.8 PG (29.0-34.0); MCHC 29.9 G/DL (30.0-36.0); MONOCYTE (%) 14.1 % (3-12); MONOCYTE COUNT 0.7 K/uL (0-0.8); NEUTROPHIL COUNT 3.2 K/uL (1.8-6.4); PLATELET COUNT 103 K/uL (156-360); RBC DIS.WIDTH-CV 19.5 % (11.8-14.6); RBC DIS.WIDTH-SD 65.9 % (39-53); RED BLOOD COUNT 3.42 M/uL (4.00-5.50)
[2018-04-02 06:08] LABS: PTT 29.5 SEC (25-37)
[2018-04-02 06:34] LABS: CHLORIDE 101 MEQ/L (99-109); GFR ESTIMATE (CALCULATED) 16 mL/min/ (58.99-99999); POTASSIUM 3.8 MEQ/L (3.7-5.4); SODIUM 141 MEQ/L (136-147); UREA NITROGEN (BUN) 26 mg/dL (9-23)
[2018-04-02 06:36] LABS: GLUCOSE 64 mg/dL (70-99)
[2018-04-02 07:49] VITALS: BP 100/61
[2018-04-02 12:05] VITALS: BP 132/67
[2018-04-02 15:42] VITALS: BP 127/66
[2018-04-02 19:51] VITALS: BP 108/58
[2018-04-03] VITALS (7 sets, daily range): BP systolic 115–125; BP diastolic 59–68
[2018-04-03 08:32] LABS: BASOPHIL (%) 0.4 % (0-1); EOSINOPHIL (%) 4.3 % (0-5); EOSINOPHIL COUNT 0.2 K/uL (0-0.3); HEMATOCRIT 32.6 % (38.0-50.0); IMMATURE GRANULOCYTE (%) 0.9 % (0.0-0.7); LYMPHOCYTE (%) 14.4 % (15-42); LYMPHOCYTE COUNT 0.7 K/uL (1.0-2.8); MCH 28.2 PG (29.0-34.0); MCHC 30.7 G/DL (30.0-36.0); MCV 91.8 FL (86-99); MONOCYTE (%) 12.9 % (3-12); MONOCYTE COUNT 0.6 K/uL (0-0.8); NEUTROPHIL (%) 67.1 % (45-76); NEUTROPHIL COUNT 3.1 K/uL (1.8-6.4); PLATELET COUNT 122 K/uL (156-360); RBC DIS.WIDTH-CV 19.1 % (11.8-14.6); RBC DIS.WIDTH-SD 64.1 % (39-53); RED BLOOD COUNT 3.55 M/uL (4.00-5.50); WHITE BLOOD COUNT 4.6 K/uL (4.1-10.2)
[2018-04-03 08:42] LABS: ALBUMIN 3.2 G/DL (3.2-4.8); CHLORIDE 101 MEQ/L (99-109); POTASSIUM 3.5 MEQ/L (3.7-5.4); SODIUM 137 MEQ/L (136-147)
[2018-04-03 09:57] LABS: CREATININE 5.1 MG/DL (0.6-1.3); GFR ESTIMATE (CALCULATED) 12 mL/min/ (58.99-99999); GLUCOSE 216 mg/dL (70-99); PHOSPHORUS 3.7 mg/dL (2.5-4.9); UREA NITROGEN (BUN) 42 mg/dL (9-23); VANCOMYCIN, TROUGH 28.6 MCG/ML (10-20)
[2018-04-04 04:16] VITALS: BP 121/77
[2018-04-04 07:29] VITALS: BP 127/67
[2018-04-04 15:54] VITALS: BP 119/69
[2018-04-04 20:25] VITALS: BP 137/67
[2018-04-04 23:53] VITALS: BP 132/61
[2018-04-05 03:43] VITALS: BP 121/74
[2018-04-05 06:33] LABS: HEMATOCRIT 34.5 % (38.0-50.0); HEMOGLOBIN 10.3 G/DL (12.5-16.6); MCH 27.5 PG (29.0-34.0); MCHC 29.9 G/DL (30.0-36.0); MCV 92.2 FL (86-99); PLATELET COUNT 155 K/uL (156-360); RBC DIS.WIDTH-CV 19.5 % (11.8-14.6); RBC DIS.WIDTH-SD 65.1 % (39-53); RED BLOOD COUNT 3.74 M/uL (4.00-5.50); WHITE BLOOD COUNT 5.8 K/uL (4.1-10.2)
[2018-04-05 07:00] LABS: ALBUMIN 3.3 G/DL (3.2-4.8); CHLORIDE 106 MEQ/L (99-109); CREATININE 5.2 MG/DL (0.6-1.3); GFR ESTIMATE (CALCULATED) 11 mL/min/ (58.99-99999); PHOSPHORUS 2.8 mg/dL (2.5-4.9); POTASSIUM 3.7 MEQ/L (3.7-5.4); SODIUM 142 MEQ/L (136-147); UREA NITROGEN (BUN) 33 mg/dL (9-23); VANCOMYCIN, TROUGH 16.6 MCG/ML (10-20)
[2018-04-05 07:05] LABS: GLUCOSE 98 mg/dL (70-99)
[2018-04-05 07:16] VITALS: BP 127/61
[2018-04-05] MEDS ORDERED: TRAMADOL HCL50 MG PO (10:59)
[2018-04-05] MEDS ORDERED: LYRICA50 MG PO (10:59)
[2018-04-05] MEDS ORDERED: LEVAQUIN500 MG PO (10:59)
[2018-04-05 11:16] VITALS: BP 134/75
== END 2018-04-05 14:04 | DRG 189 ==
LOC: EME → EDBD 20:42 → 5SOUTH 04-01 00:59 → EDOF 04-01 00:59 → ENRESERV 04-01 01:03 → 5SOUTH 04-01 02:51
PROVIDERS: Hospitalist; Internal Medicine; Internal Medicine Nephrology; Physician Assistant
PROC: 02PYX3Z Removal of Infusion Device from Great Vessel, External Approach (ICD-10-PCS; 2018-03-31)
PROC: 5A1D70Z Performance of Urinary Filtration, Intermittent, Less than 6 Hours Per Day (ICD-10-PCS; principal; 2018-04-01)
DX: J96.01 Acute respiratory failure with hypoxia (principal); J18.9 Pneumonia, unspecified organism; E87.70 Fluid overload, unspecified; I12.0 Hypertensive chronic kidney disease with stage 5 chronic kidney disease or end stage renal disease; N18.6 End stage renal disease; N25.81 Secondary hyperparathyroidism of renal origin; E11.22 Type 2 diabetes mellitus with diabetic chronic kidney disease; E11.21 Type 2 diabetes mellitus with diabetic nephropathy; E11.40 Type 2 diabetes mellitus with diabetic neuropathy, unspecified; E11.51 Type 2 diabetes mellitus with diabetic peripheral angiopathy without gangrene; D63.1 Anemia in chronic kidney disease; D50.9 Iron deficiency anemia, unspecified; K21.9 Gastro-esophageal reflux disease without esophagitis; E78.5 Hyperlipidemia, unspecified; N40.0 Benign prostatic hyperplasia without lower urinary tract symptoms; F03.90 Unspecified dementia, unspecified severity, without behavioral disturbance, psychotic disturbance, mood disturbance, and anxiety; I25.10 Atherosclerotic heart disease of native coronary artery without angina pectoris; R29.6 Repeated falls; F32.9 Major depressive disorder, single episode, unspecified; E55.9 Vitamin D deficiency, unspecified; Y95 Nosocomial condition; I25.2 Old myocardial infarction; Z79.02 Long term (current) use of antithrombotics/antiplatelets; Z79.4 Long term (current) use of insulin; Z79.82 Long term (current) use of aspirin; Z87.11 Personal history of peptic ulcer disease; Z95.1 Presence of aortocoronary bypass graft; Z99.2 Dependence on renal dialysis; Z86.73 Personal history of transient ischemic attack (TIA), and cerebral infarction without residual deficits
CPT/HCPCS: 36415; 70450; 71045; 71046; 80048; 80069; 80202; 81003; 82948; 83036; 83605; 83735; 83880; 84484; 85025; 85027; 85610; 85730; 87040; 87070; 87205; 87340; 87449; 87502; 93005; 93306; 94640; 94640 76; 94760; 94799; 97530 GO; 97530 GP; 99202; 99281; 99284; 99285; J0881; J1270; J1644; J1756; J1815; J2543; J3370; J7040; J7050

== ENCOUNTER → 2018-03-31 | Outpatient (CLI) | payer OTHER ==
[~2018-03-31] MED LIST changes: +LEVAQUIN500 MG PO; +LYRICA50 MG PO
== END | disposition home or self-care (01) ==
LOC: AMB 08:00
PROC: 02PYX3Z Removal of Infusion Device from Great Vessel, External Approach (ICD-10-PCS; principal; 2018-03-31)
DX: Z45.2 Encounter for adjustment and management of vascular access device (principal); N19 Unspecified kidney failure

== ENCOUNTER 2018-05-07 18:10 | Inpatient (IN) | payer OTHER ==
[~2018-05-07] VITALS: Ht 170.2 cm; Wt 89.1 kg
[~2018-05-07 18:10] MED LIST changes: +LEVAQUIN500 MG PO; +LYRICA50 MG PO
[2018-05-07 19:54] LABS: BASOPHIL (%) 0.7 % (0-1); BASOPHIL COUNT 0.1 K/uL (0-0.1); EOSINOPHIL (%) 3.4 % (0-5); EOSINOPHIL COUNT 0.2 K/uL (0-0.3); HEMATOCRIT 35.4 % (38.0-50.0); HEMOGLOBIN 11.3 G/DL (12.5-16.6); IMMATURE GRANULOCYTE (%) 0.6 % (0.0-0.7); LYMPHOCYTE (%) 13.4 % (15-42); LYMPHOCYTE COUNT 0.9 K/uL (1.0-2.8); MCH 29.1 PG (29.0-34.0); MCHC 31.9 G/DL (30.0-36.0); MCV 91.2 FL (86-99); MONOCYTE (%) 9.1 % (3-12); MONOCYTE COUNT 0.6 K/uL (0-0.8); NEUTROPHIL (%) 72.8 % (45-76); NEUTROPHIL COUNT 4.9 K/uL (1.8-6.4); PLATELET COUNT 77 K/uL (156-360); RBC DIS.WIDTH-CV 19.1 % (11.8-14.6); RED BLOOD COUNT 3.88 M/uL (4.00-5.50); WHITE BLOOD COUNT 6.7 K/uL (4.1-10.2)
[2018-05-07 20:01] LABS: ALBUMIN 3.8 g/dL (3.2-4.8); CHLORIDE 97 mEq/L (99-109); POTASSIUM 4.4 mEq/L (3.7-5.4); SODIUM 137 mEq/L (136-147)
[2018-05-07 20:04] LABS: GLUCOSE 240 mg/dL (70-99); TOTAL PROTEIN 6.9 g/dL (6.4-8.3)
[2018-05-07 20:06] LABS: TOTAL BILIRUBIN 0.8 mg/dL (0.0-1.0)
[2018-05-07 20:07] LABS: ALKALINE PHOSPHATASE 136 IU/L (3-129); CREATININE 3.7 mg/dL (0.6-1.3); GFR ESTIMATE (CALCULATED) 17 mL/min/ (58.99-99999)
[2018-05-07 20:08] LABS: UREA NITROGEN (BUN) 28 mg/dL (9-23)
[2018-05-07 20:09] LABS: AST (GOT) 23 IU/L (2-34)
[2018-05-07 20:10] LABS: ALT (GPT) 28 IU/L (3-49)
[2018-05-07 20:11] LABS: LIPASE 6 U/L (1.0-51.0)
[2018-05-07 21:23] LABS: APPEARANCE CLEAR ((CLEAR)); BILIRUBIN NEGATIVE; BLOOD NEGATIVE; COLOR YELLOW ((YELLOW)); GLUCOSE (STRIP) >=500; KETONES NEGATIVE; LEUKOCYTES NEGATIVE; NITRITE NEGATIVE; PROTEIN (STRIP) >=500; SPECIFIC GRAVITY 1.008 (1.000-1.030); UROBILINOGEN 0.2 MG/DL (0.2-1.0)
[2018-05-07 21:31] LABS: BACTERIA NONE SEEN /HPF; EPITHELIAL CELLS RARE /HPF; MUCUS TRACE /LPF; RED BLOOD CELLS 0-5 /HPF (0-5); UCUL ADDED? NO; WHITE BLOOD CELLS 0-5 /HPF (0-5)
[2018-05-07] MEDS ORDERED: LYRICA50 MG PO (22:42)
[2018-05-07] MEDS ORDERED: THERAGEN60 GM TP (22:43)
[2018-05-07] MEDS ORDERED: ELAVIL10 MG PO (22:43)
[2018-05-07] MEDS ORDERED: BIOFREEZE TP (22:45)
[2018-05-07] MEDS ORDERED: ARTIFICIAL TEAR1510 BOTH EYES (22:46)
[2018-05-07] MEDS ORDERED: TYLENOL EXTRA500 MG PO (22:48)
[2018-05-08 01:36] VITALS: BP 133/76
[2018-05-08 04:00] VITALS: BP 121/72
[2018-05-08 06:10] LABS: BASOPHIL (%) 0.6 % (0-1); EOSINOPHIL (%) 2.9 % (0-5); EOSINOPHIL COUNT 0.2 K/uL (0-0.3); HEMATOCRIT 34.3 % (38.0-50.0); HEMOGLOBIN 10.4 G/DL (12.5-16.6); IMMATURE GRANULOCYTE (%) 0.6 % (0.0-0.7); LYMPHOCYTE (%) 15.4 % (15-42); MCH 28.3 PG (29.0-34.0); MCHC 30.3 G/DL (30.0-36.0); MCV 93.5 FL (86-99); MONOCYTE (%) 10.9 % (3-12); MONOCYTE COUNT 0.7 K/uL (0-0.8); NEUTROPHIL (%) 69.6 % (45-76); NEUTROPHIL COUNT 4.6 K/uL (1.8-6.4); PLATELET COUNT 71 K/uL (156-360); RBC DIS.WIDTH-CV 19.2 % (11.8-14.6); RBC DIS.WIDTH-SD 64.6 % (39-53); RED BLOOD COUNT 3.67 M/uL (4.00-5.50); WHITE BLOOD COUNT 6.6 K/uL (4.1-10.2)
[2018-05-08 06:41] LABS: CHLORIDE 99 MEQ/L (99-109); CREATININE 3.9 MG/DL (0.6-1.3); GFR ESTIMATE (CALCULATED) 16 mL/min/ (58.99-99999); GLUCOSE 190 mg/dL (70-99); POTASSIUM 4.7 MEQ/L (3.7-5.4); SODIUM 138 MEQ/L (136-147); UREA NITROGEN (BUN) 30 mg/dL (9-23)
[2018-05-08 07:33] VITALS: BP 107/72
[2018-05-08 12:18] LABS: HEPATITIS B SURFACE ANTIBODY Nonreactive; HEPATITIS B SURFACE ANTIGEN Nonreactive
[2018-05-08 16:14] VITALS: BP 119/70
[2018-05-08 20:00] VITALS: BP 108/65
[2018-05-09] VITALS: BP 102/65
[2018-05-09 04:00] VITALS: BP 107/65
[2018-05-09 06:42] LABS: HEMATOCRIT 34.1 % (38.0-50.0); HEMOGLOBIN 10.2 G/DL (12.5-16.6); MCH 28.2 PG (29.0-34.0); MCHC 29.9 G/DL (30.0-36.0); MCV 94.2 FL (86-99); PLATELET COUNT 70 K/uL (156-360); RBC DIS.WIDTH-CV 19.5 % (11.8-14.6); RBC DIS.WIDTH-SD 66.4 % (39-53); RED BLOOD COUNT 3.62 M/uL (4.00-5.50); WHITE BLOOD COUNT 6.1 K/uL (4.1-10.2)
[2018-05-09 08:06] VITALS: BP 107/72
[2018-05-09 16:02] VITALS: BP 105/64
[2018-05-09 19:30] VITALS: BP 95/60
[2018-05-10 00:37] VITALS: BP 97/58
[2018-05-10 03:29] VITALS: BP 108/67
[2018-05-10 06:42] LABS: HEMATOCRIT 34.1 % (38.0-50.0); HEMOGLOBIN 10.3 G/DL (12.5-16.6); MCH 27.9 PG (29.0-34.0); MCHC 30.2 G/DL (30.0-36.0); MCV 92.4 FL (86-99); PLATELET COUNT 71 K/uL (156-360); RBC DIS.WIDTH-CV 19.2 % (11.8-14.6); RED BLOOD COUNT 3.69 M/uL (4.00-5.50); WHITE BLOOD COUNT 7.3 K/uL (4.1-10.2)
[2018-05-10 07:05] LABS: ALBUMIN 3.4 G/DL (3.2-4.8); CHLORIDE 99 MEQ/L (99-109); GFR ESTIMATE (CALCULATED) 13 mL/min/ (58.99-99999); PHOSPHORUS 4.3 mg/dL (2.5-4.9); POTASSIUM 4.4 MEQ/L (3.7-5.4); SODIUM 139 MEQ/L (136-147); UREA NITROGEN (BUN) 32 mg/dL (9-23)
[2018-05-10 07:08] LABS: CREATININE 4.6 MG/DL (0.6-1.3); GLUCOSE 72 mg/dL (70-99)
[2018-05-10 08:05] VITALS: BP 99/58
[2018-05-10 11:34] VITALS: BP 104/64
[2018-05-10] MEDS ORDERED: FLAGYL500 MG PO (13:40)
[2018-05-10] MEDS ORDERED: CIPRO500 MG PO (13:40)
[2018-05-10] MEDS ORDERED: METOPROLOL SUCC25 MG PO (13:41)
[2018-05-10 17:09] VITALS: BP 86/44
== END 2018-05-10 17:18 | disposition home health service (06) | DRG 391 ==
LOC: EME 18:10 → EDOF 05-08 00:03 → ENRESERV 05-08 00:05 → 5SOUTH 05-08 01:11
PROVIDERS: Emergency Medicine; Hospitalist; Internal Medicine Gastroenterology; Internal Medicine Nephrology; Physician Assistant Medical
PROC: 5A1D70Z Performance of Urinary Filtration, Intermittent, Less than 6 Hours Per Day (ICD-10-PCS; principal; 2018-05-08)
DX: K57.32 Diverticulitis of large intestine without perforation or abscess without bleeding (principal); I13.2 Hypertensive heart and chronic kidney disease with heart failure and with stage 5 chronic kidney disease, or end stage renal disease; I50.23 Acute on chronic systolic (congestive) heart failure; J96.91 Respiratory failure, unspecified with hypoxia; N18.6 End stage renal disease; E11.22 Type 2 diabetes mellitus with diabetic chronic kidney disease; D63.1 Anemia in chronic kidney disease; Z99.2 Dependence on renal dialysis; K74.60 Unspecified cirrhosis of liver; E11.51 Type 2 diabetes mellitus with diabetic peripheral angiopathy without gangrene; E11.40 Type 2 diabetes mellitus with diabetic neuropathy, unspecified; D69.59 Other secondary thrombocytopenia; F03.90 Unspecified dementia, unspecified severity, without behavioral disturbance, psychotic disturbance, mood disturbance, and anxiety; I08.0 Rheumatic disorders of both mitral and aortic valves; I25.10 Atherosclerotic heart disease of native coronary artery without angina pectoris; E78.5 Hyperlipidemia, unspecified; E66.9 Obesity, unspecified; Z68.30 Body mass index [BMI] 30.0-30.9, adult; I42.9 Cardiomyopathy, unspecified; K21.9 Gastro-esophageal reflux disease without esophagitis; K59.00 Constipation, unspecified; N25.81 Secondary hyperparathyroidism of renal origin; N40.0 Benign prostatic hyperplasia without lower urinary tract symptoms; M19.90 Unspecified osteoarthritis, unspecified site; M47.9 Spondylosis, unspecified; I25.2 Old myocardial infarction; R55 Syncope and collapse; F41.9 Anxiety disorder, unspecified; F32.9 Major depressive disorder, single episode, unspecified; Z91.19 Patient's noncompliance with other medical treatment and regimen; Z87.01 Personal history of pneumonia (recurrent); Z79.4 Long term (current) use of insulin; Z79.82 Long term (current) use of aspirin; Z79.02 Long term (current) use of antithrombotics/antiplatelets; Z95.1 Presence of aortocoronary bypass graft; Z87.11 Personal history of peptic ulcer disease; Z86.73 Personal history of transient ischemic attack (TIA), and cerebral infarction without residual deficits; Z82.49 Family history of ischemic heart disease and other diseases of the circulatory system
CPT/HCPCS: 71045; 74176; 80048; 80053; 80069; 81003; 82948; 83605; 83690; 83880; 85025; 85027; 86706; 87040; 87340; 87493; 93005; 94799; 99281; 99285; A6214; J0744; J1170; J1644; J1815; J1940; J1956; J2405; J3010; J7030; S0030

== ENCOUNTER 2018-05-23 22:17 | Observation (INO) | payer OTHER ==
[~2018-05-23] VITALS: Ht 177.8 cm; Wt 78.2 kg
[~2018-05-23 22:17] MED LIST changes: +ARTIFICIAL TEAR1510 BOTH EYES; +BIOFREEZE TP; +CIPRO500 MG PO; +ELAVIL10 MG PO; +FLAGYL500 MG PO; +METOPROLOL SUCC25 MG PO; +THERAGEN60 GM TP
[2018-05-23 23:12] LABS: BASOPHIL (%) 0.4 % (0-1); EOSINOPHIL (%) 2.8 % (0-5); EOSINOPHIL COUNT 0.2 K/uL (0-0.3); HEMATOCRIT 37.5 % (38.0-50.0); HEMOGLOBIN 11.7 G/DL (12.5-16.6); IMMATURE GRANULOCYTE (%) 0.4 % (0.0-0.7); LYMPHOCYTE (%) 16.5 % (15-42); LYMPHOCYTE COUNT 0.9 K/uL (1.0-2.8); MCH 29.8 PG (29.0-34.0); MCHC 31.2 G/DL (30.0-36.0); MCV 95.4 FL (86-99); MONOCYTE (%) 11.2 % (3-12); MONOCYTE COUNT 0.6 K/uL (0-0.8); NEUTROPHIL (%) 68.7 % (45-76); NEUTROPHIL COUNT 3.9 K/uL (1.8-6.4); PLATELET COUNT 75 K/uL (156-360); RBC DIS.WIDTH-CV 21.2 % (11.8-14.6); RBC DIS.WIDTH-SD 73.1 % (39-53); RED BLOOD COUNT 3.93 M/uL (4.00-5.50); WHITE BLOOD COUNT 5.6 K/uL (4.1-10.2)
[2018-05-23 23:13] LABS: INTER. NORMALIZED RATIO 1.3
[2018-05-23 23:23] LABS: ALBUMIN 3.7 g/dL (3.2-4.8); CHLORIDE 100 mEq/L (99-109); MAGNESIUM 2.3 mg/dL (1.3-2.7); POTASSIUM 4.4 mEq/L (3.7-5.4); SODIUM 138 mEq/L (136-147)
[2018-05-23 23:25] LABS: GLUCOSE 264 mg/dL (70-99); TOTAL PROTEIN 6.3 g/dL (6.4-8.3)
[2018-05-23 23:27] LABS: TOTAL BILIRUBIN 0.6 mg/dL (0.0-1.0)
[2018-05-23 23:29] LABS: ALKALINE PHOSPHATASE 97 IU/L (3-129); CREATININE 4.1 mg/dL (0.6-1.3); GFR ESTIMATE (CALCULATED) 15 mL/min/ (58.99-99999)
[2018-05-23 23:30] LABS: AST (GOT) 17 IU/L (2-34); TROP-I INTERPRETATION NEGATIVE; TROPONIN-I 0.03 ng/mL (0.0-0.30); UREA NITROGEN (BUN) 26 mg/dL (9-23)
[2018-05-23 23:32] LABS: ALT (GPT) 15 IU/L (3-49); LIPASE 12 U/L (1.0-51.0)
[2018-05-24 02:06] LABS: APPEARANCE CLEAR ((CLEAR)); BILIRUBIN NEGATIVE; BLOOD NEGATIVE; COLOR YELLOW ((YELLOW)); GLUCOSE (STRIP) >=500; KETONES NEGATIVE; LEUKOCYTES NEGATIVE; NITRITE NEGATIVE; PROTEIN (STRIP) 100; SPECIFIC GRAVITY 1.014 (1.000-1.030); UROBILINOGEN 0.2 MG/DL (0.2-1.0)
[2018-05-24 02:17] LABS: BACTERIA NONE SEEN /HPF; EPITHELIAL CELLS RARE /HPF; MUCUS NONE SEEN /LPF; RED BLOOD CELLS 0-5 /HPF (0-5); UCUL ADDED? NO; WHITE BLOOD CELLS 0-5 /HPF (0-5)
[2018-05-24 02:53] VITALS: BP 123/79
[2018-05-24 07:47] VITALS: BP 126/74
[2018-05-24 11:48] VITALS: BP 108/67
[2018-05-24 15:53] VITALS: BP 102/71
[2018-05-24] MEDS ORDERED: POLYETHYLENE GL17 GM PO (16:35)
[2018-05-24 17:42] LABS: C DIFF TOXIN POSITIVE (NEGATIVE)
[2018-05-24] MEDS ORDERED: FLAGYL500 MG PO (18:08)
== END 2018-05-24 17:48 | disposition home or self-care (01) ==
LOC: EME → EDSEX 22:17 → EDBD 22:17 → EME 22:17 → EDOF 05-24 02:05 → 4SOUTH 05-24 02:05 → ENRESERV 05-24 02:06 → 4SOUTH 05-24 02:43
PROVIDERS: Emergency Medicine; Hospitalist
DX: R10.32 Left lower quadrant pain (principal); R10.13 Epigastric pain; K59.00 Constipation, unspecified; K57.30 Diverticulosis of large intestine without perforation or abscess without bleeding; K57.10 Diverticulosis of small intestine without perforation or abscess without bleeding; K86.89 Other specified diseases of pancreas; I25.10 Atherosclerotic heart disease of native coronary artery without angina pectoris; I25.2 Old myocardial infarction; N62 Hypertrophy of breast; K21.9 Gastro-esophageal reflux disease without esophagitis; Z87.11 Personal history of peptic ulcer disease; I13.2 Hypertensive heart and chronic kidney disease with heart failure and with stage 5 chronic kidney disease, or end stage renal disease; I50.9 Heart failure, unspecified; E11.22 Type 2 diabetes mellitus with diabetic chronic kidney disease; N18.6 End stage renal disease; Z99.2 Dependence on renal dialysis; E11.40 Type 2 diabetes mellitus with diabetic neuropathy, unspecified; E11.51 Type 2 diabetes mellitus with diabetic peripheral angiopathy without gangrene; I48.91 Unspecified atrial fibrillation; E78.5 Hyperlipidemia, unspecified; N40.0 Benign prostatic hyperplasia without lower urinary tract symptoms; M19.90 Unspecified osteoarthritis, unspecified site; F03.90 Unspecified dementia, unspecified severity, without behavioral disturbance, psychotic disturbance, mood disturbance, and anxiety; Z86.73 Personal history of transient ischemic attack (TIA), and cerebral infarction without residual deficits; Z90.49 Acquired absence of other specified parts of digestive tract
CPT/HCPCS: 74177; 80053; 81003; 82948; 83605; 83690; 83735; 84484; 85025; 85610; 85730; 87493; 93005; 99281; 99285; G0378; J1644; J3010; J7040; S0028

== ENCOUNTER 2018-05-25 00:03 | Emergency (ER) | payer OTHER ==
[~2018-05-25] VITALS: Ht 170.2 cm; Wt 77.1 kg
[~2018-05-25 00:03] MED LIST changes: +POLYETHYLENE GL17 GM PO
[2018-05-25 00:57] LABS: BASOPHIL (%) 0.7 % (0-1); BASOPHIL COUNT 0.1 K/uL (0-0.1); EOSINOPHIL (%) 2.3 % (0-5); EOSINOPHIL COUNT 0.2 K/uL (0-0.3); HEMATOCRIT 35.3 % (38.0-50.0); HEMOGLOBIN 11.1 G/DL (12.5-16.6); IMMATURE GRANULOCYTE (%) 0.4 % (0.0-0.7); LYMPHOCYTE COUNT 0.9 K/uL (1.0-2.8); MCHC 31.4 G/DL (30.0-36.0); MCV 95.4 FL (86-99); MONOCYTE (%) 11.9 % (3-12); MONOCYTE COUNT 0.8 K/uL (0-0.8); NEUTROPHIL (%) 71.7 % (45-76); NEUTROPHIL COUNT 4.9 K/uL (1.8-6.4); PLATELET COUNT 75 K/uL (156-360); RBC DIS.WIDTH-CV 21.2 % (11.8-14.6); RBC DIS.WIDTH-SD 73.9 % (39-53); WHITE BLOOD COUNT 6.9 K/uL (4.1-10.2)
[2018-05-25 01:00] LABS: ALBUMIN 3.5 g/dL (3.2-4.8); CHLORIDE 98 mEq/L (99-109); POTASSIUM 4.7 mEq/L (3.7-5.4); SODIUM 135 mEq/L (136-147)
[2018-05-25 01:02] LABS: GLUCOSE 238 mg/dL (70-99); TOTAL PROTEIN 6.3 g/dL (6.4-8.3)
[2018-05-25 01:04] LABS: TOTAL BILIRUBIN 0.7 mg/dL (0.0-1.0)
[2018-05-25 01:06] LABS: ALKALINE PHOSPHATASE 83 IU/L (3-129); CREATININE 4.8 mg/dL (0.6-1.3); GFR ESTIMATE (CALCULATED) 13 mL/min/ (58.99-99999)
[2018-05-25 01:07] LABS: UREA NITROGEN (BUN) 31 mg/dL (9-23)
[2018-05-25 01:08] LABS: AST (GOT) 18 IU/L (2-34)
[2018-05-25 01:09] LABS: ALT (GPT) 14 IU/L (3-49); LIPASE 9 U/L (1.0-51.0)
[2018-05-25 04:14] VITALS: BP 116/77
== END 2018-05-25 04:16 | disposition home or self-care (01) ==
LOC: EME 00:03
PROVIDERS: Emergency Medicine
DX: R10.30 Lower abdominal pain, unspecified (principal); Z86.19 Personal history of other infectious and parasitic diseases; E11.9 Type 2 diabetes mellitus without complications; Z79.4 Long term (current) use of insulin; E78.5 Hyperlipidemia, unspecified; F03.90 Unspecified dementia, unspecified severity, without behavioral disturbance, psychotic disturbance, mood disturbance, and anxiety; F41.9 Anxiety disorder, unspecified; I10 Essential (primary) hypertension; Z86.73 Personal history of transient ischemic attack (TIA), and cerebral infarction without residual deficits; Z99.2 Dependence on renal dialysis; Z95.1 Presence of aortocoronary bypass graft; Z79.82 Long term (current) use of aspirin
CPT/HCPCS: 74176; 80053; 81003; 83605; 83690; 85025; 99281; 99284

== ENCOUNTER 2018-05-27 00:24 | Emergency (ER) | payer OTHER ==
[~2018-05-27] VITALS: Ht 170.2 cm; Wt 70.0 kg
[2018-05-27 01:06] LABS: HEMATOCRIT 35.6 % (38.0-50.0); HEMOGLOBIN 11.2 G/DL (12.5-16.6); MCHC 31.5 G/DL (30.0-36.0); MCV 95.4 FL (86-99); PLATELET COUNT 77 K/uL (156-360); RBC DIS.WIDTH-CV 21.1 % (11.8-14.6); RBC DIS.WIDTH-SD 73.4 % (39-53); RED BLOOD COUNT 3.73 M/uL (4.00-5.50); WHITE BLOOD COUNT 6.2 K/uL (4.1-10.2)
[2018-05-27 01:14] LABS: ALBUMIN 3.6 g/dL (3.2-4.8); CHLORIDE 100 mEq/L (99-109); POTASSIUM 4.3 mEq/L (3.7-5.4); SODIUM 135 mEq/L (136-147)
[2018-05-27 01:17] LABS: GLUCOSE 256 mg/dL (70-99); TOTAL PROTEIN 6.5 g/dL (6.4-8.3)
[2018-05-27 01:19] LABS: TOTAL BILIRUBIN 0.6 mg/dL (0.0-1.0)
[2018-05-27 01:20] LABS: ALKALINE PHOSPHATASE 94 IU/L (3-129); CREATININE 4.5 mg/dL (0.6-1.3); GFR ESTIMATE (CALCULATED) 14 mL/min/ (58.99-99999)
[2018-05-27 01:21] LABS: UREA NITROGEN (BUN) 29 mg/dL (9-23)
[2018-05-27 01:22] LABS: AST (GOT) 20 IU/L (2-34)
[2018-05-27 01:23] LABS: ALT (GPT) 16 IU/L (3-49)
[2018-05-27 01:24] LABS: LIPASE 9 U/L (1.0-51.0)
[2018-05-27 02:20] LABS: APPEARANCE CLOUDY ((CLEAR)); BILIRUBIN NEGATIVE; BLOOD NEGATIVE; COLOR YELLOW ((YELLOW)); GLUCOSE (STRIP) 150; KETONES NEGATIVE; LEUKOCYTES NEGATIVE; NITRITE NEGATIVE; PROTEIN (STRIP) 100; SPECIFIC GRAVITY 1.009 (1.000-1.030); UROBILINOGEN 0.2 MG/DL (0.2-1.0)
[2018-05-27 02:25] LABS: BACTERIA RARE /HPF; EPITHELIAL CELLS RARE /HPF; MUCUS NONE SEEN /LPF; UCUL ADDED? NO; WHITE BLOOD CELLS 0-5 /HPF (0-5)
[2018-05-27 03:56] VITALS: BP 117/91
== END 2018-05-27 03:53 | disposition home or self-care (01) ==
LOC: EME → EDBD 00:24 → EME 00:24
PROVIDERS: Emergency Medicine
DX: R10.32 Left lower quadrant pain (principal); A04.72 Enterocolitis due to Clostridium difficile, not specified as recurrent; J90 Pleural effusion, not elsewhere classified; F03.90 Unspecified dementia, unspecified severity, without behavioral disturbance, psychotic disturbance, mood disturbance, and anxiety; I12.0 Hypertensive chronic kidney disease with stage 5 chronic kidney disease or end stage renal disease; E11.22 Type 2 diabetes mellitus with diabetic chronic kidney disease; N18.6 End stage renal disease; E78.5 Hyperlipidemia, unspecified; Z99.2 Dependence on renal dialysis; Z95.1 Presence of aortocoronary bypass graft; Z90.49 Acquired absence of other specified parts of digestive tract; Z86.73 Personal history of transient ischemic attack (TIA), and cerebral infarction without residual deficits; Z79.02 Long term (current) use of antithrombotics/antiplatelets; Z79.82 Long term (current) use of aspirin; Z79.4 Long term (current) use of insulin
CPT/HCPCS: 74022; 80053; 81003; 83690; 85027

== ENCOUNTER 2018-05-30 00:53 | Emergency (ER) | payer OTHER ==
[~2018-05-30] VITALS: Ht 170.2 cm; Wt 74.1 kg
[2018-05-30 02:22] LABS: ALBUMIN 3.6 g/dL (3.2-4.8); CHLORIDE 101 mEq/L (99-109); SODIUM 139 mEq/L (136-147)
[2018-05-30 02:23] LABS: INTER. NORMALIZED RATIO 1.9
[2018-05-30 02:24] LABS: GLUCOSE 169 mg/dL (70-99); TOTAL PROTEIN 6.3 g/dL (6.4-8.3)
[2018-05-30 02:26] LABS: TOTAL BILIRUBIN 0.5 mg/dL (0.0-1.0)
[2018-05-30 02:28] LABS: ALKALINE PHOSPHATASE 102 IU/L (3-129)
[2018-05-30 02:29] LABS: UREA NITROGEN (BUN) 24 mg/dL (9-23)
[2018-05-30 02:31] LABS: LIPASE 10 U/L (1.0-51.0)
[2018-05-30 02:45] LABS: ALT (GPT) 47 IU/L (3-49); AST (GOT) 66 IU/L (2-34); CREATININE 3.6 mg/dL (0.6-1.3); GFR ESTIMATE (CALCULATED) 18 mL/min/ (58.99-99999)
[2018-05-30 03:12] LABS: HEMATOCRIT 33.8 % (38.0-50.0); HEMOGLOBIN 10.8 G/DL (12.5-16.6); MCH 30.4 PG (29.0-34.0); MCV 95.2 FL (86-99); PLATELET COUNT 74 K/uL (156-360); RBC DIS.WIDTH-CV 20.4 % (11.8-14.6); RBC DIS.WIDTH-SD 71.6 % (39-53); RED BLOOD COUNT 3.55 M/uL (4.00-5.50); WHITE BLOOD COUNT 6.1 K/uL (4.1-10.2)
[2018-05-30 04:28] VITALS: BP 117/71
[2018-05-31] MEDS ORDERED: MIRALAX17 GM PO (15:11)
== END 2018-05-30 04:31 | disposition home or self-care (01) ==
LOC: EME 00:53
PROVIDERS: Emergency Medicine
DX: G89.29 Other chronic pain (principal); R10.9 Unspecified abdominal pain; I12.0 Hypertensive chronic kidney disease with stage 5 chronic kidney disease or end stage renal disease; E11.22 Type 2 diabetes mellitus with diabetic chronic kidney disease; E11.40 Type 2 diabetes mellitus with diabetic neuropathy, unspecified; N18.6 End stage renal disease; Z99.2 Dependence on renal dialysis; Z86.73 Personal history of transient ischemic attack (TIA), and cerebral infarction without residual deficits; Z95.1 Presence of aortocoronary bypass graft; Z79.02 Long term (current) use of antithrombotics/antiplatelets; Z79.4 Long term (current) use of insulin; Z79.82 Long term (current) use of aspirin
CPT/HCPCS: 74018; 80053; 81003; 83605; 83690; 85027; 85610; 85730; 93005; 99281; 99285; J2270

== ENCOUNTER 2018-05-31 10:24 | Inpatient (IN) | payer OTHER ==
[~2018-05-31] VITALS: Ht 170.2 cm; Wt 76.6 kg
[2018-05-31 11:05] LABS: BASOPHIL (%) 0.9 % (0-1); BASOPHIL COUNT 0.1 K/uL (0-0.1); EOSINOPHIL (%) 2.9 % (0-5); EOSINOPHIL COUNT 0.2 K/uL (0-0.3); HEMATOCRIT 35.5 % (38.0-50.0); HEMOGLOBIN 11.1 G/DL (12.5-16.6); IMMATURE GRANULOCYTE (%) 0.5 % (0.0-0.7); LYMPHOCYTE (%) 15.9 % (15-42); MCH 30.2 PG (29.0-34.0); MCHC 31.3 G/DL (30.0-36.0); MCV 96.5 FL (86-99); MONOCYTE (%) 15.3 % (3-12); NEUTROPHIL (%) 64.5 % (45-76); NEUTROPHIL COUNT 4.2 K/uL (1.8-6.4); RBC DIS.WIDTH-CV 20.8 % (11.8-14.6); RBC DIS.WIDTH-SD 73.8 % (39-53); RED BLOOD COUNT 3.68 M/uL (4.00-5.50); WHITE BLOOD COUNT 6.5 K/uL (4.1-10.2)
[2018-05-31 11:06] LABS: ALBUMIN 3.8 g/dL (3.2-4.8); CHLORIDE 102 mEq/L (99-109); POTASSIUM 4.2 mEq/L (3.7-5.4); SODIUM 142 mEq/L (136-147)
[2018-05-31 11:07] LABS: AMYLASE 26 IU/L (1-118)
[2018-05-31 11:08] LABS: GLUCOSE 160 mg/dL (70-99); TOTAL PROTEIN 6.7 g/dL (6.4-8.3)
[2018-05-31 11:10] LABS: TOTAL BILIRUBIN 0.6 mg/dL (0.0-1.0)
[2018-05-31 11:11] LABS: SERUM ETHYL ALCOHOL < 10 mg/dL
[2018-05-31 11:12] LABS: ALKALINE PHOSPHATASE 102 IU/L (3-129); GFR ESTIMATE (CALCULATED) 12 mL/min/ (58.99-99999)
[2018-05-31 11:13] LABS: AST (GOT) 42 IU/L (2-34); INTER. NORMALIZED RATIO 1.6; UREA NITROGEN (BUN) 36 mg/dL (9-23)
[2018-05-31 11:14] LABS: DIRECT BILIRUBIN 0.4 mg/dL (0.0-0.3)
[2018-05-31 11:15] LABS: ALT (GPT) 46 IU/L (3-49); LIPASE 6 U/L (1.0-51.0)
[2018-05-31 11:16] LABS: PTT 32.5 SEC (25-37)
[2018-05-31 11:17] LABS: CREATININE 4.9 mg/dL (0.6-1.3)
[2018-05-31 11:18] LABS: TROP-I INTERPRETATION NEGATIVE; TROPONIN-I 0.04 ng/mL (0.0-0.30)
[2018-05-31 11:35] LABS: PLATELET COUNT 76 K/uL (156-360)
[2018-05-31 12:01] LABS: APPEARANCE CLEAR ((CLEAR)); BILIRUBIN NEGATIVE; BLOOD NEGATIVE; COLOR YELLOW ((YELLOW)); GLUCOSE (STRIP) 150; KETONES NEGATIVE; LEUKOCYTES NEGATIVE; NITRITE NEGATIVE; PROTEIN (STRIP) 100; SPECIFIC GRAVITY 1.016 (1.000-1.030); UROBILINOGEN 0.2 MG/DL (0.2-1.0)
[2018-05-31 12:07] LABS: BACTERIA NONE SEEN /HPF; EPITHELIAL CELLS NONE SEEN /HPF; MUCUS NONE SEEN /LPF; RED BLOOD CELLS 0-5 /HPF (0-5); UCUL ADDED? NO; WHITE BLOOD CELLS 0-5 /HPF (0-5)
[2018-05-31 12:18] LABS: D-DIMER ELISA < 150.00 ng/mLDDU (<230)
[2018-05-31 12:29] LABS: AMPHETAMINE NEGATIVE (500 ng/mL); BARBITURATES NEGATIVE (200 ng/mL); BENZODIAZEPINES NEGATIVE (150 ng/mL); BUPRENORPHINE NEGATIVE (10 ng/mL); COCAINE NEGATIVE (150 ng/mL); METHADONE NEGATIVE (200 ng/mL); METHAMPHETAMINE NEGATIVE (500 ng/mL); OPIATES (MORPHINE) PRESUMPTIVE POSITIVE (100 ng/mL); OXYCODONE PRESUMPTIVE POSITIVE (100 ng/mL); PHENCYCLIDINE NEGATIVE (25 ng/mL); PROPOXYPHENE NEGATIVE (300 ng/mL); THC CANNABINOIDS NEGATIVE (50 ng/mL); TRICYCLIC ANTIDEPRESSANTS PRESUMPTIVE POSITIVE (300 ng/mL)
[2018-05-31] MEDS ORDERED: MIRALAX17 GM PO (15:11)
[2018-05-31 17:01] LABS: TROP-I INTERPRETATION NEGATIVE; TROPONIN-I 0.04 ng/mL (0.0-0.30)
[2018-05-31 17:42] VITALS: BP 128/80
[2018-05-31 20:14] VITALS: BP 117/70
[2018-05-31 23:32] LABS: TROP-I INTERPRETATION NEGATIVE; TROPONIN-I 0.03 ng/mL (0.0-0.30)
[2018-06-01] VITALS (7 sets, daily range): BP systolic 106–133; BP diastolic 58–76
[2018-06-01 09:11] LABS: BASOPHIL (%) 0.8 % (0-1); BASOPHIL COUNT 0.1 K/uL (0-0.1); EOSINOPHIL (%) 3.2 % (0-5); EOSINOPHIL COUNT 0.2 K/uL (0-0.3); HEMATOCRIT 34.5 % (38.0-50.0); HEMOGLOBIN 10.6 G/DL (12.5-16.6); IMMATURE GRANULOCYTE (%) 0.7 % (0.0-0.7); LYMPHOCYTE (%) 14.5 % (15-42); LYMPHOCYTE COUNT 0.9 K/uL (1.0-2.8); MCH 29.5 PG (29.0-34.0); MCHC 30.7 G/DL (30.0-36.0); MCV 96.1 FL (86-99); MONOCYTE (%) 12.6 % (3-12); MONOCYTE COUNT 0.8 K/uL (0-0.8); NEUTROPHIL (%) 68.2 % (45-76); NEUTROPHIL COUNT 4.1 K/uL (1.8-6.4); PLATELET COUNT 78 K/uL (156-360); RBC DIS.WIDTH-CV 21.1 % (11.8-14.6); RED BLOOD COUNT 3.59 M/uL (4.00-5.50)
[2018-06-01 09:19] LABS: ALBUMIN 3.6 G/DL (3.2-4.8); CHLORIDE 104 MEQ/L (99-109); CREATININE 5.5 MG/DL (0.6-1.3); GFR ESTIMATE (CALCULATED) 11 mL/min/ (58.99-99999); GLUCOSE 216 mg/dL (70-99); POTASSIUM 4.2 MEQ/L (3.7-5.4); SODIUM 140 MEQ/L (136-147); UREA NITROGEN (BUN) 45 mg/dL (9-23)
[2018-06-01 09:21] LABS: PHOSPHORUS 2.6 mg/dL (2.5-4.9)
[2018-06-02 07:49] VITALS: BP 94/54
[2018-06-02 11:54] VITALS: BP 108/69
[2018-06-02 15:47] VITALS: BP 108/60
[2018-06-02 20:05] VITALS: BP 118/62
[2018-06-03] VITALS (7 sets, daily range): BP systolic 101–137; BP diastolic 58–75
[2018-06-03 07:36] LABS: ALBUMIN 3.7 G/DL (3.2-4.8); CHLORIDE 106 MEQ/L (99-109); CREATININE 4.7 MG/DL (0.6-1.3); GFR ESTIMATE (CALCULATED) 13 mL/min/ (58.99-99999); HEMATOCRIT 36.6 % (38.0-50.0); HEMOGLOBIN 10.9 G/DL (12.5-16.6); MCH 29.1 PG (29.0-34.0); MCHC 29.8 G/DL (30.0-36.0); MCV 97.6 FL (86-99); PHOSPHORUS 3.2 mg/dL (2.5-4.9); PLATELET COUNT 87 K/uL (156-360); POTASSIUM 4.2 MEQ/L (3.7-5.4); RBC DIS.WIDTH-CV 20.9 % (11.8-14.6); RBC DIS.WIDTH-SD 74.6 % (39-53); RED BLOOD COUNT 3.75 M/uL (4.00-5.50); SODIUM 143 MEQ/L (136-147); UREA NITROGEN (BUN) 33 mg/dL (9-23); WHITE BLOOD COUNT 5.9 K/uL (4.1-10.2)
[2018-06-03 07:47] LABS: GLUCOSE 60 mg/dL (70-99)
[2018-06-03 11:22] LABS: HEPATITIS B SURFACE ANTIGEN Nonreactive
[2018-06-03 11:23] LABS: HEPATITIS B SURFACE ANTIBODY Nonreactive
[2018-06-04 03:10] VITALS: BP 101/58
[2018-06-04 03:36] VITALS: BP 115/69
[2018-06-04 08:13] VITALS: BP 116/74
[2018-06-04 12:13] VITALS: BP 110/65
[2018-06-04 16:10] VITALS: BP 112/69
[2018-06-04] MEDS ORDERED: ROPINIROLE HC0.25 MG PO (18:58)
[2018-06-04] MEDS ORDERED: NOVOLOG 10100 UNITS/ SC (19:02)
[2018-06-05 00:21] VITALS: BP 132/66
[2018-06-05 06:02] LABS: HEMATOCRIT 34.4 % (38.0-50.0); HEMOGLOBIN 10.7 G/DL (12.5-16.6); MCHC 31.1 G/DL (30.0-36.0); MCV 96.4 FL (86-99); PLATELET COUNT 92 K/uL (156-360); RBC DIS.WIDTH-CV 20.7 % (11.8-14.6); RED BLOOD COUNT 3.57 M/uL (4.00-5.50); WHITE BLOOD COUNT 5.5 K/uL (4.1-10.2)
[2018-06-05 06:34] LABS: ALBUMIN 3.6 G/DL (3.2-4.8); CHLORIDE 102 MEQ/L (99-109); CREATININE 4.7 MG/DL (0.6-1.3); GFR ESTIMATE (CALCULATED) 13 mL/min/ (58.99-99999); PHOSPHORUS 2.9 mg/dL (2.5-4.9); POTASSIUM 3.9 MEQ/L (3.7-5.4); SODIUM 141 MEQ/L (136-147); UREA NITROGEN (BUN) 35 mg/dL (9-23)
[2018-06-05 06:37] LABS: GLUCOSE 279 mg/dL (70-99)
[2018-06-05] MEDS ORDERED: TOPROL XL25 MG PO (19:25)
== END 2018-06-05 13:08 | DRG 70 ==
LOC: EME → EDBD 10:24 → EDOF 14:55 → 5SOUTH 14:55 → ENRESERV 14:57 → 5SOUTH 17:25
PROVIDERS: Emergency Medicine; Hospitalist; Internal Medicine; Internal Medicine Nephrology; Nurse Practitioner Family
DX: G93.41 Metabolic encephalopathy (principal); T40.2X5A Adverse effect of other opioids, initial encounter; E78.5 Hyperlipidemia, unspecified; K74.60 Unspecified cirrhosis of liver; I25.10 Atherosclerotic heart disease of native coronary artery without angina pectoris; I13.2 Hypertensive heart and chronic kidney disease with heart failure and with stage 5 chronic kidney disease, or end stage renal disease; M19.90 Unspecified osteoarthritis, unspecified site; I50.9 Heart failure, unspecified; G25.81 Restless legs syndrome; M79.604 Pain in right leg; I25.5 Ischemic cardiomyopathy; F03.90 Unspecified dementia, unspecified severity, without behavioral disturbance, psychotic disturbance, mood disturbance, and anxiety; N18.6 End stage renal disease; F41.9 Anxiety disorder, unspecified; N25.81 Secondary hyperparathyroidism of renal origin; G89.29 Other chronic pain; F32.9 Major depressive disorder, single episode, unspecified; M51.9 Unspecified thoracic, thoracolumbar and lumbosacral intervertebral disc disorder; E11.51 Type 2 diabetes mellitus with diabetic peripheral angiopathy without gangrene; E11.40 Type 2 diabetes mellitus with diabetic neuropathy, unspecified; E11.22 Type 2 diabetes mellitus with diabetic chronic kidney disease; D63.1 Anemia in chronic kidney disease; D69.6 Thrombocytopenia, unspecified; Z99.2 Dependence on renal dialysis; Y92.039 Unspecified place in apartment as the place of occurrence of the external cause; I25.2 Old myocardial infarction; Z79.4 Long term (current) use of insulin; I48.2 Chronic atrial fibrillation; N40.0 Benign prostatic hyperplasia without lower urinary tract symptoms; Z79.82 Long term (current) use of aspirin; Z79.899 Other long term (current) drug therapy; Z86.73 Personal history of transient ischemic attack (TIA), and cerebral infarction without residual deficits; Z95.1 Presence of aortocoronary bypass graft; Z87.891 Personal history of nicotine dependence; Z79.02 Long term (current) use of antithrombotics/antiplatelets; E11.649 Type 2 diabetes mellitus with hypoglycemia without coma; S60.221A Contusion of right hand, initial encounter; W19.XXXA Unspecified fall, initial encounter; Y93.9 Activity, unspecified; Y92.239 Unspecified place in hospital as the place of occurrence of the external cause; D50.9 Iron deficiency anemia, unspecified; I08.0 Rheumatic disorders of both mitral and aortic valves
CPT/HCPCS: 70450; 71045; 71046; 71250; 72125; 72128; 72131; 74018; 74176; 80047; 80048; 80053; 80069; 80076; 81003; 82140; 82150; 82948; 83605; 83690; 84484; 84999; 85025; 85027; 85379; 85610; 85730; 86706; 86850; 86900; 86901; 87340; 93005; 94799; 99281; 99285; G0480; J1644; J1815; J2270

== ENCOUNTER 2018-06-05 15:30 | Inpatient (IN) | payer OTHER ==
[~2018-06-05] VITALS: Ht 170.2 cm; Wt 86.0 kg
[~2018-06-05 15:30] MED LIST changes: +MIRALAX17 GM PO; +ROPINIROLE HC0.25 MG PO
[2018-06-05 17:13] LABS: BASOPHIL (%) 0.4 % (0-1); EOSINOPHIL (%) 2.2 % (0-5); EOSINOPHIL COUNT 0.2 K/uL (0-0.3); HEMATOCRIT 37.2 % (38.0-50.0); HEMOGLOBIN 11.8 G/DL (12.5-16.6); IMMATURE GRANULOCYTE (%) 0.4 % (0.0-0.7); LYMPHOCYTE (%) 9.1 % (15-42); LYMPHOCYTE COUNT 0.6 K/uL (1.0-2.8); MCH 30.6 PG (29.0-34.0); MCHC 31.7 G/DL (30.0-36.0); MCV 96.4 FL (86-99); MONOCYTE COUNT 0.7 K/uL (0-0.8); NEUTROPHIL (%) 77.9 % (45-76); NEUTROPHIL COUNT 5.3 K/uL (1.8-6.4); PLATELET COUNT 87 K/uL (156-360); RBC DIS.WIDTH-CV 20.7 % (11.8-14.6); RBC DIS.WIDTH-SD 73.1 % (39-53); RED BLOOD COUNT 3.86 M/uL (4.00-5.50); WHITE BLOOD COUNT 6.8 K/uL (4.1-10.2)
[2018-06-05 17:23] LABS: ALBUMIN 3.7 g/dL (3.2-4.8); CHLORIDE 103 mEq/L (99-109); POTASSIUM 4.2 mEq/L (3.7-5.4); SODIUM 140 mEq/L (136-147)
[2018-06-05 17:25] LABS: GLUCOSE 160 mg/dL (70-99)
[2018-06-05 17:27] LABS: TOTAL BILIRUBIN 0.7 mg/dL (0.0-1.0)
[2018-06-05 17:29] LABS: ALKALINE PHOSPHATASE 99 IU/L (3-129); CREATININE 3.4 mg/dL (0.6-1.3); GFR ESTIMATE (CALCULATED) 19 mL/min/ (58.99-99999)
[2018-06-05 17:30] LABS: UREA NITROGEN (BUN) 18 mg/dL (9-23)
[2018-06-05 17:32] LABS: ALT (GPT) 26 IU/L (3-49); AST (GOT) 22 IU/L (2-34)
[2018-06-05] MEDS ORDERED: TOPROL XL25 MG PO (19:25)
[2018-06-05 21:13] VITALS: BP 110/60
[2018-06-05 22:42] VITALS: BP 110/55
[2018-06-06] VITALS (7 sets, daily range): BP systolic 94–122; BP diastolic 62–75
[2018-06-06 06:29] LABS: HEMATOCRIT 35.6 % (38.0-50.0); HEMOGLOBIN 10.9 G/DL (12.5-16.6); MCH 29.7 PG (29.0-34.0); MCHC 30.6 G/DL (30.0-36.0); PLATELET COUNT 78 K/uL (156-360); RBC DIS.WIDTH-CV 20.7 % (11.8-14.6); RBC DIS.WIDTH-SD 73.3 % (39-53); RED BLOOD COUNT 3.67 M/uL (4.00-5.50); WHITE BLOOD COUNT 5.6 K/uL (4.1-10.2)
[2018-06-06 07:02] LABS: ALBUMIN 3.8 G/DL (3.2-4.8); ALKALINE PHOSPHATASE 92 IU/L (3-129); ALT (GPT) 21 IU/L (3-49); AST (GOT) 22 IU/L (2-34); CHLORIDE 101 MEQ/L (99-109); CREATININE 3.5 MG/DL (0.6-1.3); GFR ESTIMATE (CALCULATED) 18 mL/min/ (58.99-99999); SODIUM 141 MEQ/L (136-147); TOTAL BILIRUBIN 0.7 MG/DL (0.0-1.0); TOTAL PROTEIN 6.2 G/DL (6.4-8.3); UREA NITROGEN (BUN) 24 mg/dL (9-23)
[2018-06-06 07:05] LABS: GLUCOSE 318 mg/dL (70-99)
[2018-06-07 04:07] VITALS: BP 106/56
[2018-06-07 07:11] VITALS: BP 109/76
[2018-06-07 11:30] VITALS: BP 109/81
[2018-06-07 15:35] VITALS: BP 118/59
[2018-06-07 20:18] VITALS: BP 111/67
[2018-06-08 00:08] VITALS: BP 113/66
[2018-06-08 08:17] VITALS: BP 115/79
[2018-06-08 08:22] LABS: HEMATOCRIT 33.1 % (38.0-50.0); HEMOGLOBIN 10.5 G/DL (12.5-16.6); MCH 29.9 PG (29.0-34.0); MCHC 31.7 G/DL (30.0-36.0); MCV 94.3 FL (86-99); PLATELET COUNT 78 K/uL (156-360); RBC DIS.WIDTH-CV 20.1 % (11.8-14.6); RBC DIS.WIDTH-SD 69.8 % (39-53); RED BLOOD COUNT 3.51 M/uL (4.00-5.50); WHITE BLOOD COUNT 8.1 K/uL (4.1-10.2)
[2018-06-08 08:53] LABS: ALBUMIN 3.5 G/DL (3.2-4.8); CHLORIDE 101 MEQ/L (99-109); GLUCOSE 215 mg/dL (70-99)
[2018-06-08 08:54] LABS: CREATININE 5.3 MG/DL (0.6-1.3); GFR ESTIMATE (CALCULATED) 11 mL/min/ (58.99-99999); PHOSPHORUS 4.9 mg/dL (2.5-4.9); POTASSIUM 4.9 MEQ/L (3.7-5.4); SODIUM 131 MEQ/L (136-147); UREA NITROGEN (BUN) 46 mg/dL (9-23)
[2018-06-08 15:35] VITALS: BP 104/65
[2018-06-08 23:58] VITALS: BP 104/71
[2018-06-09 07:30] VITALS: BP 130/77
[2018-06-09 16:00] VITALS: BP 113/69
[2018-06-09 23:58] VITALS: BP 118/62
[2018-06-10 08:10] VITALS: BP 127/72
[2018-06-10 08:24] LABS: BASOPHIL (%) 0.9 % (0-1); BASOPHIL COUNT 0.1 K/uL (0-0.1); EOSINOPHIL (%) 2.1 % (0-5); EOSINOPHIL COUNT 0.1 K/uL (0-0.3); HEMOGLOBIN 9.9 G/DL (12.5-16.6); IMMATURE GRANULOCYTE (%) 0.5 % (0.0-0.7); LYMPHOCYTE COUNT 0.6 K/uL (1.0-2.8); MCH 29.8 PG (29.0-34.0); MCHC 31.9 G/DL (30.0-36.0); MCV 93.4 FL (86-99); MONOCYTE (%) 13.6 % (3-12); MONOCYTE COUNT 0.8 K/uL (0-0.8); NEUTROPHIL (%) 72.9 % (45-76); NEUTROPHIL COUNT 4.2 K/uL (1.8-6.4); PLATELET COUNT 75 K/uL (156-360); RBC DIS.WIDTH-CV 19.9 % (11.8-14.6); RED BLOOD COUNT 3.32 M/uL (4.00-5.50); WHITE BLOOD COUNT 5.7 K/uL (4.1-10.2)
[2018-06-10 08:50] LABS: ALBUMIN 3.5 G/DL (3.2-4.8); CHLORIDE 101 MEQ/L (99-109); GFR ESTIMATE (CALCULATED) 12 mL/min/ (58.99-99999); GLUCOSE 213 mg/dL (70-99); PHOSPHORUS 3.9 mg/dL (2.5-4.9); UREA NITROGEN (BUN) 41 mg/dL (9-23)
[2018-06-10 08:51] LABS: POTASSIUM 3.5 MEQ/L (3.7-5.4); SODIUM 140 MEQ/L (136-147)
[2018-06-10 11:44] VITALS: BP 114/57
[2018-06-10 15:57] VITALS: BP 116/77
[2018-06-11 07:00] VITALS: BP 121/79
[2018-06-11] MEDS ORDERED: FAMOTIDINE20 MG PO (15:25)
[2018-06-11] MEDS ORDERED: LYRICA50 MG PO (15:25)
[2018-06-11] MEDS ORDERED: QUETIAPINE FUMA25 MG PO (15:25)
[2018-06-11 15:55] VITALS: BP 113/67
[2018-06-12] MEDS ORDERED: ATORVASTATIN CA10 MG PO (15:12)
[2018-06-12] MEDS ORDERED: ELAVIL10 MG PO (15:13)
[2018-06-12] MEDS ORDERED: NORVASC5 MG PO (15:13)
[2018-06-12] MEDS ORDERED: TRAMADOL HCL50 MG PO (15:14)
[2018-06-12] MEDS ORDERED: LYRICA50 MG PO (15:15)
== END 2018-06-11 17:51 | DRG 91 ==
LOC: EME 15:30 → 5EAST 19:30 → EDOF 19:30 → ENRESERV 19:54 → 5EAST 21:01
PROVIDERS: Emergency Medicine; Internal Medicine; Internal Medicine Nephrology
PROC: 5A1D70Z Performance of Urinary Filtration, Intermittent, Less than 6 Hours Per Day (ICD-10-PCS; principal; 2018-06-05)
DX: R26.81 Unsteadiness on feet (principal); R53.1 Weakness; Z91.81 History of falling; F01.51 Vascular dementia, unspecified severity, with behavioral disturbance; E11.42 Type 2 diabetes mellitus with diabetic polyneuropathy; I13.2 Hypertensive heart and chronic kidney disease with heart failure and with stage 5 chronic kidney disease, or end stage renal disease; I50.9 Heart failure, unspecified; E11.22 Type 2 diabetes mellitus with diabetic chronic kidney disease; N18.6 End stage renal disease; E78.5 Hyperlipidemia, unspecified; F41.9 Anxiety disorder, unspecified; K74.60 Unspecified cirrhosis of liver; I25.10 Atherosclerotic heart disease of native coronary artery without angina pectoris; I25.5 Ischemic cardiomyopathy; E11.51 Type 2 diabetes mellitus with diabetic peripheral angiopathy without gangrene; F32.9 Major depressive disorder, single episode, unspecified; N40.0 Benign prostatic hyperplasia without lower urinary tract symptoms; E55.9 Vitamin D deficiency, unspecified; M50.30 Other cervical disc degeneration, unspecified cervical region; G47.00 Insomnia, unspecified; K21.9 Gastro-esophageal reflux disease without esophagitis; G25.81 Restless legs syndrome; D64.9 Anemia, unspecified; D69.6 Thrombocytopenia, unspecified; I25.2 Old myocardial infarction; Z95.1 Presence of aortocoronary bypass graft; Z86.73 Personal history of transient ischemic attack (TIA), and cerebral infarction without residual deficits; Z79.02 Long term (current) use of antithrombotics/antiplatelets; Z79.82 Long term (current) use of aspirin; Z99.2 Dependence on renal dialysis; Z79.4 Long term (current) use of insulin; Z87.891 Personal history of nicotine dependence
CPT/HCPCS: 70450; 72125; 80053; 80069; 82140; 82948; 85025; 85027; 87493; 99281; 99285; J1644; J1815

== ENCOUNTER 2018-06-11 23:12 | Inpatient (IN) | payer OTHER ==
[~2018-06-11] VITALS: Ht 170.2 cm; Wt 79.9 kg
[~2018-06-11 23:12] MED LIST changes: +FAMOTIDINE20 MG PO; +QUETIAPINE FUMA25 MG PO; +TOPROL XL25 MG PO
[2018-06-12 00:55] LABS: HEMATOCRIT 33.6 % (38.0-50.0); HEMOGLOBIN 10.8 G/DL (12.5-16.6); MCH 30.5 PG (29.0-34.0); MCHC 32.1 G/DL (30.0-36.0); MCV 94.9 FL (86-99); NRBC (%) 0.2 /100 WBC (0-0); PLATELET COUNT 96 K/uL (156-360); RBC DIS.WIDTH-CV 20.4 % (11.8-14.6); RBC DIS.WIDTH-SD 70.1 % (39-53); RED BLOOD COUNT 3.54 M/uL (4.00-5.50); WHITE BLOOD COUNT 8.3 K/uL (4.1-10.2)
[2018-06-12 00:56] LABS: CARBON DIOXIDE (BICARBONATE) 27.4 MEQ/L (20-31)
[2018-06-12 01:05] LABS: ALBUMIN 3.7 g/dL (3.2-4.8); CHLORIDE 103 mEq/L (99-109); POTASSIUM 3.9 mEq/L (3.7-5.4); SODIUM 142 mEq/L (136-147)
[2018-06-12 01:08] LABS: GLUCOSE 193 mg/dL (70-99); TOTAL PROTEIN 6.3 g/dL (6.4-8.3)
[2018-06-12 01:12] LABS: CREATININE 5.1 mg/dL (0.6-1.3); GFR ESTIMATE (CALCULATED) 12 mL/min/ (58.99-99999)
[2018-06-12 01:13] LABS: DIRECT BILIRUBIN 0.7 mg/dL (0.0-0.3); UREA NITROGEN (BUN) 34 mg/dL (9-23)
[2018-06-12 01:14] LABS: TROP-I INTERPRETATION NEGATIVE; TROPONIN-I 0.08 ng/mL (0.0-0.30)
[2018-06-12 01:15] LABS: LIPASE 12 U/L (1.0-51.0)
[2018-06-12 02:40] LABS: ALKALINE PHOSPHATASE 132 IU/L (3-129); ALT (GPT) 178 IU/L (3-49); AST (GOT) 100 IU/L (2-34); TOTAL BILIRUBIN 1.2 mg/dL (0.0-1.0)
[2018-06-12 04:45] VITALS: BP 108/70
[2018-06-12 05:00] VITALS: BP 102/70
[2018-06-12 08:40] VITALS: BP 101/71
[2018-06-12] MEDS ORDERED: ATORVASTATIN CA10 MG PO (15:12)
[2018-06-12] MEDS ORDERED: NORVASC5 MG PO (15:13)
[2018-06-12] MEDS ORDERED: ELAVIL10 MG PO (15:13)
[2018-06-12] MEDS ORDERED: TRAMADOL HCL50 MG PO (15:14)
[2018-06-12] MEDS ORDERED: LYRICA50 MG PO (15:15)
[2018-06-12 16:42] VITALS: BP 116/67
[2018-06-12 19:10] VITALS: BP 112/64
[2018-06-12 23:00] VITALS: BP 111/67
[2018-06-13 03:00] VITALS: BP 125/59
[2018-06-13 08:12] VITALS: BP 115/82
[2018-06-13 11:48] VITALS: BP 106/68
[2018-06-13 15:13] VITALS: BP 122/74
[2018-06-13 19:16] VITALS: BP 110/76
[2018-06-13] MEDS ORDERED: POLYETHYLENE GL17 GM PO (20:41)
[2018-06-13] MEDS ORDERED: PRAVASTATIN SOD40 MG PO (20:41)
[2018-06-13] MEDS ORDERED: AMITRIPTYLINE H10 MG PO (20:42)
[2018-06-13] MEDS ORDERED: METOPROLOL SUCC25 MG PO (20:42)
[2018-06-13 22:53] VITALS: BP 116/74
[2018-06-14 04:59] VITALS: BP 116/64
[2018-06-14 07:29] VITALS: BP 121/78
[2018-06-14 10:59] VITALS: BP 144/80
[2018-06-14 19:49] VITALS: BP 104/61
[2018-06-14 23:49] VITALS: BP 110/81
[2018-06-15 04:52] VITALS: BP 107/70
[2018-06-15 05:24] LABS: HEMATOCRIT 31.9 % (38.0-50.0); HEMOGLOBIN 9.9 G/DL (12.5-16.6); MCH 30.2 PG (29.0-34.0); MCV 97.3 FL (86-99); NRBC (%) 0.3 /100 WBC (0-0); PLATELET COUNT 72 K/uL (156-360); RBC DIS.WIDTH-CV 20.7 % (11.8-14.6); RBC DIS.WIDTH-SD 72.7 % (39-53); RED BLOOD COUNT 3.28 M/uL (4.00-5.50); WHITE BLOOD COUNT 6.9 K/uL (4.1-10.2)
[2018-06-15 05:49] LABS: ALBUMIN 3.3 G/DL (3.2-4.8); CHLORIDE 101 MEQ/L (99-109); CREATININE 5.4 MG/DL (0.6-1.3); GFR ESTIMATE (CALCULATED) 11 mL/min/ (58.99-99999); GLUCOSE 208 mg/dL (70-99); PHOSPHORUS 3.5 mg/dL (2.5-4.9); SODIUM 138 MEQ/L (136-147); UREA NITROGEN (BUN) 51 mg/dL (9-23)
[2018-06-15 20:00] VITALS: BP 106/71
[2018-06-16 00:15] VITALS: BP 98/60
[2018-06-16 04:37] VITALS: BP 109/71
[2018-06-16 09:00] VITALS: BP 116/76
[2018-06-16 16:00] VITALS: BP 101/70
[2018-06-16 21:15] VITALS: BP 112/67
[2018-06-16 23:35] VITALS: BP 106/82
[2018-06-17 05:29] VITALS: BP 135/84
[2018-06-17 10:03] LABS: BASOPHIL (%) 0.8 % (0-1); BASOPHIL COUNT 0.1 K/uL (0-0.1); EOSINOPHIL (%) 2.5 % (0-5); EOSINOPHIL COUNT 0.2 K/uL (0-0.3); IMMATURE GRANULOCYTE (%) 0.5 % (0.0-0.7); LYMPHOCYTE (%) 15.1 % (15-42); MCH 30.8 PG (29.0-34.0); MCHC 32.3 G/DL (30.0-36.0); MCV 95.4 FL (86-99); MONOCYTE (%) 12.9 % (3-12); MONOCYTE COUNT 0.8 K/uL (0-0.8); NEUTROPHIL (%) 68.2 % (45-76); NEUTROPHIL COUNT 4.4 K/uL (1.8-6.4); PLATELET COUNT 70 K/uL (156-360); RBC DIS.WIDTH-CV 20.3 % (11.8-14.6); RBC DIS.WIDTH-SD 71.2 % (39-53); RED BLOOD COUNT 3.25 M/uL (4.00-5.50); WHITE BLOOD COUNT 6.4 K/uL (4.1-10.2)
[2018-06-17 10:14] LABS: CHLORIDE 100 MEQ/L (99-109); CREATININE 5.2 MG/DL (0.6-1.3); GFR ESTIMATE (CALCULATED) 11 mL/min/ (58.99-99999); GLUCOSE 215 mg/dL (70-99); POTASSIUM 3.9 MEQ/L (3.7-5.4); SODIUM 135 MEQ/L (136-147); UREA NITROGEN (BUN) 55 mg/dL (9-23)
[2018-06-17 14:35] VITALS: BP 104/72
[2018-06-17 17:53] VITALS: BP 126/74
[2018-06-17 19:38] VITALS: BP 104/80
[2018-06-18] VITALS (9 sets, daily range): BP systolic 103–152; BP diastolic 62–76
[2018-06-19 04:15] VITALS: BP 124/76
[2018-06-19 09:06] LABS: ALBUMIN 3.3 G/DL (3.2-4.8); CHLORIDE 98 MEQ/L (99-109); HEMATOCRIT 32.3 % (38.0-50.0); HEMOGLOBIN 10.2 G/DL (12.5-16.6); MCHC 31.6 G/DL (30.0-36.0); PLATELET COUNT 73 K/uL (156-360); POTASSIUM 4.5 MEQ/L (3.7-5.4); RBC DIS.WIDTH-CV 19.9 % (11.8-14.6); RBC DIS.WIDTH-SD 68.9 % (39-53); SODIUM 133 MEQ/L (136-147); WHITE BLOOD COUNT 8.3 K/uL (4.1-10.2)
[2018-06-19 09:13] LABS: CREATININE 5.1 MG/DL (0.6-1.3); GFR ESTIMATE (CALCULATED) 12 mL/min/ (58.99-99999); GLUCOSE 221 mg/dL (70-99); PHOSPHORUS 5.7 mg/dL (2.5-4.9); UREA NITROGEN (BUN) 62 mg/dL (9-23)
[2018-06-19 15:42] VITALS: BP 132/64
[2018-06-19 19:52] VITALS: BP 113/59
[2018-06-19 22:13] LABS: C DIFF TOXIN POSITIVE (NEGATIVE)
[2018-06-19 23:43] VITALS: BP 121/75
[2018-06-20 05:30] VITALS: BP 115/83
[2018-06-20 08:00] VITALS: BP 116/80
[2018-06-20 11:27] VITALS: BP 118/64
[2018-06-20 16:00] VITALS: BP 120/78
[2018-06-20 19:54] VITALS: BP 120/70
[2018-06-20 23:51] VITALS: BP 122/84
[2018-06-21 05:00] VITALS: BP 124/84
[2018-06-21 08:35] VITALS: BP 140/60
[2018-06-21 11:35] VITALS: BP 110/68
[2018-06-21 14:11] LABS: ALBUMIN 3.2 G/DL (3.2-4.8); CHLORIDE 96 MEQ/L (99-109); POTASSIUM 4.8 MEQ/L (3.7-5.4); SODIUM 131 MEQ/L (136-147)
[2018-06-21 14:17] LABS: CREATININE 5.7 MG/DL (0.6-1.3); GFR ESTIMATE (CALCULATED) 10 mL/min/ (58.99-99999); GLUCOSE 70 mg/dL (70-99); PHOSPHORUS 7.5 mg/dL (2.5-4.9); UREA NITROGEN (BUN) 78 mg/dL (9-23)
[2018-06-21 14:21] LABS: HEMATOCRIT 31.7 % (38.0-50.0); HEMOGLOBIN 10.3 G/DL (12.5-16.6); MCH 30.8 PG (29.0-34.0); MCHC 32.5 G/DL (30.0-36.0); MCV 94.9 FL (86-99); NRBC (%) 0.5 /100 WBC (0-0); RBC DIS.WIDTH-SD 66.8 % (39-53); RED BLOOD COUNT 3.34 M/uL (4.00-5.50); WHITE BLOOD COUNT 7.3 K/uL (4.1-10.2)
[2018-06-21 15:23] LABS: PLATELET COUNT 79 K/uL (156-360)
[2018-06-21 16:30] VITALS: BP 70/66
[2018-06-21 19:30] VITALS: BP 80/54
[2018-06-21 23:27] VITALS: BP 88/62
[2018-06-22 03:51] VITALS: BP 97/56
[2018-06-22 07:47] VITALS: BP 140/50
[2018-06-22 12:00] VITALS: BP 80/54
[2018-06-22 15:25] VITALS: BP 140/50
== END 2018-06-22 16:05 | disposition hospice, home (50) | DRG 371 ==
LOC: EME → EDBD 23:12 → EME 23:12 → 4EAST 06-12 03:09 → 3EAST 06-12 03:09 → EDOF 06-12 03:09 → ENRESERV 06-12 03:13 → 4EAST 06-12 04:31 → ENRESERV 06-17 11:58 → 3EAST 06-17 17:18
PROVIDERS: Emergency Medicine; Internal Medicine
DX: A04.72 Enterocolitis due to Clostridium difficile, not specified as recurrent (principal); E11.22 Type 2 diabetes mellitus with diabetic chronic kidney disease; I13.2 Hypertensive heart and chronic kidney disease with heart failure and with stage 5 chronic kidney disease, or end stage renal disease; I48.91 Unspecified atrial fibrillation; A41.02 Sepsis due to Methicillin resistant Staphylococcus aureus; G93.41 Metabolic encephalopathy; E11.40 Type 2 diabetes mellitus with diabetic neuropathy, unspecified; E11.51 Type 2 diabetes mellitus with diabetic peripheral angiopathy without gangrene; E87.2 Acidosis; D69.6 Thrombocytopenia, unspecified; N18.6 End stage renal disease; Z51.5 Encounter for palliative care; Z66 Do not resuscitate; Z79.4 Long term (current) use of insulin; Z83.3 Family history of diabetes mellitus; Z86.73 Personal history of transient ischemic attack (TIA), and cerebral infarction without residual deficits; Z91.81 History of falling; Z99.2 Dependence on renal dialysis; I25.5 Ischemic cardiomyopathy; I25.10 Atherosclerotic heart disease of native coronary artery without angina pectoris; E78.5 Hyperlipidemia, unspecified; D63.1 Anemia in chronic kidney disease; F01.50 Vascular dementia, unspecified severity, without behavioral disturbance, psychotic disturbance, mood disturbance, and anxiety; I25.2 Old myocardial infarction; I35.0 Nonrheumatic aortic (valve) stenosis; I49.1 Atrial premature depolarization; I50.22 Chronic systolic (congestive) heart failure; K74.60 Unspecified cirrhosis of liver; N40.1 Benign prostatic hyperplasia with lower urinary tract symptoms; R09.02 Hypoxemia; S30.0XXA Contusion of lower back and pelvis, initial encounter; W18.30XA Fall on same level, unspecified, initial encounter; Y92.129 Unspecified place in nursing home as the place of occurrence of the external cause; Z95.1 Presence of aortocoronary bypass graft
CPT/HCPCS: 70450; 71045; 72125; 74176; 80048; 80069; 80076; 80202; 82140; 82803; 82948; 83605; 83690; 83880; 84484; 85025; 85027; 87040; 87077; 87186; 87493; 87641; 87801; 92610 GN; 93005; 93306; 94640; 94799; 97530 GO; 99281; 99285; A6214; J0881; J1630; J1815; J1940; J2270; J3370; J7040; P9047